=== PATIENT | female | born 1960 | race American Indian/Alaskan Native ===

== ENCOUNTER 2017-03-11 22:06 | Emergency (ER) | payer OTHER ==
[2017-03-11 22:06] VITALS: BMI 37.4
[2017-03-11 22:13] VITALS: TEMP 97.8
--- NOTE | 2017-03-11 22:53 | ED PDOC ---
Syncope/Near Syncope/Dizziness Time Seen by Provider: 03/11/17 22:14 Chief Complaint (Nursing): Seizure Chief Complaint (Provider): syncope History Per: Patient Onset/Duration Of Symptoms: Sudden Onset (just prior to arrival) Activity At Onset Of Symptoms: Other (just walked out of a bathroom that had cleaning fume smell) Associated Symptoms Preceding Syncopal Episode: No Predromal Symptoms (Sudden Onset) Additional Complaint(s): Pt also reports that she may have had a seizure but isn't sure. No report of convulsive activity. However, she has h/o seizure and she has not taken her medications for a "few days" due to issues with the homeless [facility]. Denies focal weakness, blurry vision, slurred speech, confusion, or headache PMD Dr Rubio Noel Past Medical History Reviewed: Historical Data, Nursing Documentation, Vital Signs Vital Signs: Last Vital Signs Temp 97.8 F 03/11/17 22:07 Pulse 85 03/11/17 22:07 Resp 16 03/11/17 22:07 BP 137/61 03/11/17 22:07 Pulse Ox 97 03/11/17 22:07 - Medical History PMH: Anemia, Anxiety, Asthma, Back Problems, HTN, Migraine, Chronic Kidney Disease, Seizures (LAST WAS IN AUG PER PT) Denies: Hyperthyroidism (hyperparathyroidism ) - Surgical History Surgical History: - Family History Family History: States: Unknown Family Hx - Living Arrangements Living Arrangements: Other (Undomiciled) - Social History Current smoker - smoking cessation education provided: No Alcohol: None - Immunization History Hx Tetanus Toxoid Vaccination: Yes Hx Influenza Vaccination: Yes (05/2015) Hx Pneumococcal Vaccination: Yes (2012) - Home Medications Home Medications: Ambulatory Orders Medication Instructions Recorded Ferrous Sulfate [Iron Supplement] 325 mg PO TID 09/09/15 Folic Acid 1 mg PO TID 11/19/15 Meclizine [Meclizine*] 25 mg PO TID PRN #0 tab 10/11/16 Metoprolol Tartrate [Lopressor] 12.5 mg PO DAILY #30 tab 10/11/16 Levetiracetam [Keppra] 500 mg PO HS 01/12/17 Pantoprazole [Protonix EC Tab] 40 mg PO DAILY 01/12/17 Phenytoin, Extended [Dilantin] 200 mg PO DAILY 01/28/17 Acetaminophen [Tylenol 325mg tab] 650 mg PO Q6 PRN tab 02/27/17 Ketorolac [Toradol] 30 mg IVP STAT vial 02/27/17 Nitrofurantoin Macrocrystals 100 mg PO BID 5 Days 03/12/17 [Macrobid] - Allergies Allergies/Adverse Reactions: Allergies Allergy/AdvReac Type Severity Reaction Status Date / Time ciprofloxacin [From Cipro] Allergy ITCHING Verified 01/29/17 13:13 ciprofloxacin HCl Allergy ITCHING Verified 01/29/17 13:13 [From Cipro] heparin Allergy Verified 02/24/17 21:58 iodine Allergy SHORTNESS Verified 01/29/17 13:13 OF BREATH peanut Allergy SHORTNESS Verified 01/29/17 13:13 OF BREATH Penicillins Allergy RASH Verified 01/29/17 13:13 shellfish derived Allergy RASH Verified 01/29/17 13:13 baljit nuts Allergy SHORTNESS Uncoded 01/28/17 17:27 OF BREATH nuts Allergy SHORTNESS Uncoded 01/28/17 17:27 OF BREATH peanut butter Allergy SHORTNESS Uncoded 01/28/17 17:27 OF BREATH Review of Systems ROS Statement: Except As Marked, All Systems Reviewed And Found Negative (and as per HPI) Musculoskeletal: Positive for: Neck Pain Neurological: Positive for: Dizziness (chronic vertigo). Negative for: Weakness , Numbness, Confusion, Headache Physical Exam - Reviewed Nursing Documentation Reviewed: Yes Vital Signs Reviewed: Yes - Physical Exam Appears: Positive for: Non-toxic, No Acute Distress Head Exam: Positive for: ATRAUMATIC, NORMOCEPHALIC Skin: Positive for: Warm, Dry Eye Exam: Positive for: EOMI, PERRL ENT: Negative for: Pharyngeal Erythema, Tonsillar Exudate Neck: Positive for: Painless ROM, Supple Cardiovascular/Chest: Positive for: Regular Rate, Rhythm, Chest Non Tender. Negative for: Murmur Respiratory: Positive for: Normal Breath Sounds. Negative for: Wheezing Gastrointestinal/Abdominal: Positive for: Bowel Sounds, Soft. Negative for: Tenderness Back: Positive for: Normal Inspection. Negative for: Vertebral Tenderness Extremity: Positive for: Normal ROM. 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 Negative for: Motor/Sensory Deficits, Aphasia, Facial Droop - Laboratory Results Result Diagrams: 03/11/17 23:35 03/11/17 23:35 - ECG O2 Sat by Pulse Oximetry: 97 Medical Decision Making Medical Decision Making: Reviewed previous charts Pt had multiple visits to [facility] ER for similar issue in the last 2 months She had tilt table testing and cardiac workup negative. Neuro evaluation also unremarkable. Call placed to Dr Rodriguez Noel for collateral medical history and pt's plan of care. Disposition - Clinical Impression Clinical Impression: UTI (urinary tract infection), Seizure disorder - Disposition Disposition Time: 00:30 Condition: STABLE Prescriptions: Nitrofurantoin Macrocrystals [Macrobid] 100 mg PO BID 5 Days Patient Signed Over To: Delano Saavedra Handoff Comments: Pending ER workup, reassessment and final ER disposition
[2017-03-11 23:47] LABS: RBC URINE 3 /hpf (0-3); URINE BACTERIA FEW (<OCC); URINE BILIRUBIN NEGATIVE (NEGATIVE); URINE BLOOD NEGATIVE (NEGATIVE); URINE COLOR YELLOW (YELLOW); URINE GLUCOSE (UA) NEG (Normal); URINE KETONE NEGATIVE (NEGATIVE); URINE LEUKOCYTE ESTERASE MOD Leu/uL (Negative); URINE PROTEIN NEGATIVE (NEGATIVE); URINE UROBILINOGEN 0.2-1.0 mg/dL (0.2-1.0); WBC URINE 25 /hpf (0-5)
[2017-03-12 00:07] LABS: BASO # 0.1 K/uL (0.0-0.2); BASO % 0.9 % (0.0-2.0); EOS # 0.3 K/uL (0.0-0.7); HEMATOCRIT 38.5 % (34.0-47.0); LYMPH # 2.5 K/uL (1.0-4.3); LYMPH % 37.5 % (20.0-40.0); MEAN CELL VOLUME 87.9 fl (81.0-99.0); MEAN CORPUSCULAR HEMOGLOBIN 28.9 pg (27.0-31.0); MEAN CORPUSCULAR HGB CONC 32.9 g/dL (33.0-37.0); MEAN PLATELET VOLUME 10.2 fl (7.2-11.7); MONO # 0.7 K/uL (0.0-0.8); MONO % 10.3 % (0.0-10.0); NEUT # 3.2 K/uL (1.8-7.0); NEUT % 47.3 % (50.0-75.0); RED CELL DISTRIBUTION WIDTH 14.6 % (11.5-14.5); WHITE BLOOD COUNT 6.7 K/uL (4.8-10.8)
--- NOTE | 2017-03-12 00:45 | ED PDOC ---
- Laboratory Results Result Diagrams: 03/11/17 23:35 03/11/17 23:35 - ECG O2 Sat by Pulse Oximetry: 97 Medical Decision Making Medical Decision Makin Transfer of care from Dr. Joseph to provider pending lab work. 0256 Patient has had no seizure activity within the ED. Dilantin level - negative Patient admits to not been taking medicine for the past few days. Scribe Attestation: Documented by Susanna Gutierrez acting as a scribe for Delano Saavedra MD. Scribe Attestation: All medical record entries made by the Scribe were at my direction and personally dictated by me. I have reviewed the chart and agree that the record accurately reflects my personal performance of the history, physical exam, medical decision making, and the department course for this patient. I have also personally directed, reviewed, and agree with the discharge instructions and disposition. Disposition - Clinical Impression Clinical Impression: UTI (urinary tract infection), Seizure disorder - POA Present On Arrival: None - Disposition Referrals: [facility] [Outside] Disposition: Routine/Home Disposition Time: 02:55 Condition: STABLE Prescriptions: Nitrofurantoin Macrocrystals [Macrobid] 100 mg PO BID 5 Days Instructions: Urinary Tract Infection in Women (DC), Epilepsy (ED)
[2017-03-12 00:47] LABS: ALB/GLOB RATIO 1.3 (1.0-2.1); ALCOHOL SERUM < 10 mg/dl (0-10); ALKALINE PHOSPHATASE 135 U/L (38-126); ALT/SGPT 35 U/L (9-52); AST/SGOT 23 U/L (14-36); BILIRUBIN,TOTAL 0.2 mg/dl (0.2-1.3); BLOOD UREA NITROGEN 20 mg/dl (7-17); CALCIUM 11.6 mg/dL (8.4-10.2); CARBON DIOXIDE 24 mmol/L (22-30); CHLORIDE 107 mmol/L (98-107); GFR AFRICAN-AMERICAN > 60; GLUCOSE,RANDOM 99 mg/dL (65-105); MAGNESIUM 1.9 MG/DL (1.6-2.3); POTASSIUM 4.2 MMOL/L (3.6-5.0); SODIUM 140 mmol/l (132-148); TOTAL PROTEIN 7.3 G/DL (6.3-8.2)
[2017-03-12 01:15] LABS: PARTIAL THROMBOPLASTIN TIME 25.3 Seconds (25.6-37.1)
[2017-03-12 04:05] VITALS: BP 122/81; PULSE 69; RESP 18
[2017-03-12 04:06] VITALS: O2SAT 97
--- NOTE | 2017-03-12 13:47 | CARD ---
APPROVED REPORT EKG Measurement Heart [id number] WI 180P59 [id number] <Conclusion> Normal sinus rhythm Minimal voltage criteria for LVH, may be normal variant Possible Anteroseptal infarct, age undetermined Abnormal ECG
== END 2017-03-12 04:00 | disposition home or self-care (01) ==
LOC: H.ER 22:06
DX: N39.0 Urinary tract infection, site not specified (principal); G40.909 Epilepsy, unspecified, not intractable, without status epilepticus

== ENCOUNTER 2017-03-17 12:21 | Emergency (ER) | payer OTHER ==
[2017-03-17 12:21] VITALS: BMI 37.4
[2017-03-17 12:24] VITALS: TEMP 97.9; O2SAT 98
--- NOTE | 2017-03-17 13:42 | ED PDOC ---
Syncope/Near Syncope/Dizziness Time Seen by Provider: 03/17/17 12:34 Chief Complaint (Nursing): Syncope Chief Complaint (Provider): Syncope History Per: Patient History/Exam Limitations: no limitations Onset/Duration Of Symptoms: Mins Current Symptoms Are (Timing): Still Present Number Of Syncopal Episodes: 1 Seizure Or Post-ictal Symptoms: None Fall Associated With With Symptoms: No Severity: Mild Additional Complaint(s): Patient is a 57 year old female brought in by EMS complaining of syncopal event earlier today. Patient reports she has been feeling foggy since yesterday. Patient reports she had a syncopal episode in hindu, unknown duration. There was no seizure-like activity or post-ictal period. Patient has a history of asthma and also complains of shortness of breath. Denies head trauma, chest pain , palpitations, visual changes, paresthesia, weakness, or pain at this time. PMD: none Past Medical History Reviewed: Historical Data, Nursing Documentation, Vital Signs Vital Signs: Last Vital Signs Temp 97.9 F 03/17/17 12:23 Pulse 72 03/17/17 12:23 Resp 20 03/17/17 12:23 BP 108/72 03/17/17 12:23 Pulse Ox 98 03/17/17 12:23 - Medical History PMH: Anemia, Anxiety, Asthma, Back Problems, HTN, Kidney Stones, Migraine, Chronic Kidney Disease, Seizures (LAST WAS IN AUG PER PT) Denies: Hyperthyroidism (hyperparathyroidism ) - Surgical History Surgical History: - Family History Family History: States: No Known Family Hx - Immunization History Hx Tetanus Toxoid Vaccination: Yes Hx Influenza Vaccination: Yes (05/2015) Hx Pneumococcal Vaccination: Yes (2012) - Home Medications Home Medications: Ambulatory Orders Medication Instructions Recorded Ferrous Sulfate [Iron Supplement] 325 mg PO TID 09/09/15 Folic Acid 1 mg PO TID 11/19/15 Meclizine [Meclizine*] 25 mg PO TID PRN #0 tab 10/11/16 Metoprolol Tartrate [Lopressor] 12.5 mg PO DAILY #30 tab 10/11/16 Levetiracetam [Keppra] 500 mg PO HS 01/12/17 Pantoprazole [Protonix EC Tab] 40 mg PO DAILY 01/12/17 Phenytoin, Extended [Dilantin] 200 mg PO DAILY 01/28/17 Acetaminophen [Tylenol 325mg tab] 650 mg PO Q6 PRN tab 02/27/17 Levetiracetam [Keppra] 500 mg PO BID #28 tablet 03/17/17 Phenytoin, Extended [Dilantin 200 mg PO DAILY #14 cer 03/17/17 Kapseals] Sulfamethoxazole/Trimethoprim 1 tab PO BID #10 tab 03/17/17 [Bactrim DS 800 mg-160 mg] - Allergies Allergies/Adverse Reactions: Allergies Allergy/AdvReac Type Severity Reaction Status Date / Time ciprofloxacin [From Cipro] Allergy ITCHING Verified 03/17/17 12:35 ciprofloxacin HCl Allergy ITCHING Verified 03/17/17 12:35 [From Cipro] heparin Allergy RASH Verified 03/17/17 12:35 iodine Allergy SHORTNESS Verified 03/17/17 12:35 OF BREATH peanut Allergy SHORTNESS Verified 03/17/17 12:35 OF BREATH Penicillins Allergy RASH Verified 03/17/17 12:35 shellfish derived Allergy RASH Verified 03/17/17 12:35 baljit nuts Allergy SHORTNESS Uncoded 03/17/17 12:35 OF BREATH nuts Allergy SHORTNESS Uncoded 03/17/17 12:35 OF BREATH peanut butter Allergy SHORTNESS Uncoded 03/17/17 12:35 OF BREATH Review of Systems ROS Statement: Except As Marked, All Systems Reviewed And Found Negative Constitutional: Positive for: Other (Syncope) Eyes: Negative for: Vision Change Cardiovascular: Negative for: Chest Pain, Palpitations Neurological: Negative for: Weakness, Seizures Physical Exam - Reviewed Nursing Documentation Reviewed: Yes Vital Signs Reviewed: Yes - Physical Exam Appears: Positive for: Well, Non-toxic, No Acute Distress Head Exam: Positive for: ATRAUMATIC, NORMAL INSPECTION, NORMOCEPHALIC Skin: Positive for: Normal Color, Warm, DRY Eye Exam: Positive for: Normal appearance, EOMI, PERRL Neck: Positive for: Normal, Painless ROM Cardiovascular/Chest: Positive for: Regular Rate, Rhythm. Negative for: Gallop , Murmur Respiratory: Positive for: Normal Breath Sounds. Negative for: Accessory Muscle Use, Rhonchi, Respiratory Distress Extremity: Positive for: Normal ROM Neurologic/Psych: Positive for: Alert, Oriented (x3) - Laboratory Results Result Diagrams: 03/17/17 13:38 03/17/17 13:38 - ECG Interpretation Of ECG: NSR @ 71, no ST-T changes. O2 Sat by Pulse Oximetry: 98 (RA) Pulse Ox Interpretation: Normal - Physician Consult Information Time Consulting Physican Contacted: 16:45 Physician Contacted: Henrique Merino Outcome Of Conversation: Covering for Dr. Heri Noel, agrees with discharge home. Medical Decision Making Medical Decision Making: Time: 12:35 Impression: Syncopal Event Plan: CT Head EKG Carbamazepine CMP Dilantin stat Troponin stat UDip CBC D Dimer PTT/PT CXR Glucose Blood POC Stat UA [address] Chung, the neurologist compliance professional. Recommends administering 300mg Dilantin for the subtherapeutic level right now and then to continue as per the regular schedule. Also notes to increase Keppra to 500mg x2 a day. Old records reviewed, pt admitted to [facility] multiple times for syncope. Pt states workup for syncopal episodes negative, was told they were related to stress. States she is homeless now and is under a lot of stress and thinks this is the reason she passed out today. Pt without complaints, feels good. Scribe Attestation: Documented by Wilber Sierra acting as a scribe for Nilsa Chandler MD. MD Scribe Attestation: All medical record entries made by the Scribe were at my direction and personally dictated by me. I have reviewed the chart and agree that the record accurately reflects my personal performance of the history, physical exam, medical decision making, and the department course for this patient. I have also personally directed, reviewed, and agree with the discharge instructions and disposition. Disposition - Clinical Impression Clinical Impression: Syncope, UTI (urinary tract infection) - Patient ED Disposition Is Patient to be Admitted: No - Disposition Referrals: Andrés Chung MD [Staff Provider] - Shania Noel MD [Staff Provider] - Disposition: Routine/Home Disposition Time: 16:50 Condition: STABLE Prescriptions: Levetiracetam [Keppra] 500 mg PO BID #28 tablet Phenytoin, Extended [Dilantin Kapseals] 200 mg PO DAILY #14 cer Sulfamethoxazole/Trimethoprim [Bactrim DS 800 mg-160 mg] 1 tab PO BID #10 tab Instructions: Urinary Tract Infection in Women (ED), Syncope (ED)
[2017-03-17 13:47] LABS: RBC URINE 7 /hpf (0-3); URINE BACTERIA RARE (<OCC); URINE BILIRUBIN NEGATIVE (NEGATIVE); URINE BLOOD NEGATIVE (NEGATIVE); URINE COLOR YELLOW (YELLOW); URINE GLUCOSE (UA) NEG (Normal); URINE KETONE NEGATIVE (NEGATIVE); URINE LEUKOCYTE ESTERASE LARGE Leu/uL (Negative); URINE PROTEIN NEGATIVE (NEGATIVE); URINE UROBILINOGEN 0.2-1.0 mg/dL (0.2-1.0); WBC CLUMPS FEW /hpf; WBC URINE 48 /hpf (0-5)
[2017-03-17 13:48] LABS: BASO # 0.1 K/uL (0.0-0.2); BASO % 0.9 % (0.0-2.0); EOS # 0.3 K/uL (0.0-0.7); EOS % 4.8 % (0.0-4.0); HEMATOCRIT 38.9 % (34.0-47.0); LYMPH # 2.3 K/uL (1.0-4.3); LYMPH % 41.4 % (20.0-40.0); MEAN CELL VOLUME 88.7 fl (81.0-99.0); MEAN CORPUSCULAR HGB CONC 32.7 g/dL (33.0-37.0); MEAN PLATELET VOLUME 9.8 fl (7.2-11.7); MONO # 0.6 K/uL (0.0-0.8); MONO % 10.3 % (0.0-10.0); NEUT # 2.4 K/uL (1.8-7.0); NEUT % 42.6 % (50.0-75.0); NRBC % 0.1 % (0.0-0.0); RED CELL DISTRIBUTION WIDTH 14.5 % (11.5-14.5); WHITE BLOOD COUNT 5.5 K/uL (4.8-10.8)
--- NOTE | 2017-03-17 14:12 | CT ---
PROCEDURE: CT HEAD WITHOUT CONTRAST. HISTORY: Syncope COMPARISON: None available. TECHNIQUE: Axial computed tomography images were obtained through the head/brain without intravenous contrast. Radiation dose: Total exam DLP = 923.2 MGy-cm. This CT exam was performed using one or more of the following dose reduction techniques: Automated exposure control, adjustment of the mA and/or kV according to patient size, and/or use of iterative reconstruction technique. FINDINGS: HEMORRHAGE: No acute parenchymal, subarachnoid or extra-axial hemorrhage. BRAIN: No evidence of large acute infarct. Questionable minimal chronic periventricular white matter ischemic changes. No obvious parenchymal nor extra-axial mass or collection. . Minor age-appropriate volume loss. VENTRICLES: No evidence of obstructive hydrocephalus. CALVARIUM: No acute calvarial fractures. PARANASAL SINUSES: Unremarkable as visualized. No significant inflammatory changes. MASTOID AIR CELLS: Unremarkable as visualized. No inflammatory changes. OTHER FINDINGS: None. IMPRESSION: No acute intracranial hemorrhage. . . Questionable minimal chronic periventricular white matter ischemic changes.
[2017-03-17 14:25] LABS: PARTIAL THROMBOPLASTIN TIME 26.5 Seconds (25.6-37.1)
[2017-03-17 14:26] LABS: ALB/GLOB RATIO 1.2 (1.0-2.1); ALKALINE PHOSPHATASE 137 U/L (38-126); ALT/SGPT 37 U/L (9-52); AST/SGOT 23 U/L (14-36); BILIRUBIN,TOTAL 0.1 mg/dl (0.2-1.3); BLOOD UREA NITROGEN 12 mg/dl (7-17); CARBON DIOXIDE 23 mmol/L (22-30); CHLORIDE 107 mmol/L (98-107); GFR AFRICAN-AMERICAN > 60; GLUCOSE,RANDOM 91 mg/dL (65-105); POTASSIUM 4.3 MMOL/L (3.6-5.0); SODIUM 141 mmol/l (132-148); TOTAL PROTEIN 7.1 G/DL (6.3-8.2)
[2017-03-17 14:30] LABS: CARBAMAZEPINE < 3.0 ug/mL (4.0-12.0)
[2017-03-17] MEDS ORDERED: Tmp-Smz 800 mg-160 mg DS Tab PO STA (15:51)
[2017-03-17] MEDS ORDERED: Fluconazole 150 MG TAB PO STA (15:51)
[2017-03-17] MEDS ORDERED: Tmp-Smz 800 mg-160 mg DS Tab ONE (15:53)
--- NOTE | 2017-03-17 15:55 | RAD ---
HISTORY: Syncope COMPARISON: No prior. FINDINGS: LUNGS: No active pulmonary disease. PLEURA: No significant pleural effusion identified, no pneumothorax apparent. CARDIOVASCULAR: Cardiomegaly. OSSEOUS STRUCTURES: Minor multilevel degenerative spondylosis of the thoracic spine with mild dextroscoliosis centered at the thoracolumbar junction. VISUALIZED UPPER ABDOMEN: Normal. OTHER FINDINGS: None. IMPRESSION: Cardiomegaly. No acute consolidation.
[2017-03-17 17:25] VITALS: BP 138/75; PULSE 69; RESP 18
--- NOTE | 2017-03-18 16:45 | CARD ---
APPROVED REPORT EKG Measurement Heart [id number] RI 208P63 [id number] <Conclusion> Normal sinus rhythm Septal infarct, age undetermined Abnormal ECG
== END 2017-03-17 17:40 | disposition home or self-care (01) ==
LOC: H.ER 12:21
DX: R55 Syncope and collapse (principal); N39.0 Urinary tract infection, site not specified

== ENCOUNTER 2017-03-29 06:47 | Emergency (ER) | payer OTHER ==
[2017-03-29 06:47] VITALS: BMI 37.4
--- NOTE | 2017-03-29 07:26 | ED PDOC ---
HPI: SOB/CHF/COPD Time Seen by Provider: 03/29/17 07:09 Chief Complaint (Nursing): Shortness Of Breath History Per: Patient History/Exam Limitations: no limitations Onset/Duration Of Symptoms: Gradual (THIS AM) Current Symptoms Are (Timing): Gone Now Current Respiratory Medications: See Home Med List Severity: Mild Associated Symptoms: denies: Fever, Chills, Sweating, Chest Pain, Bloody Cough, Productive Cough, Heart Racing, Leg/Calf Pain, Ankle/Leg Swelling, Dizziness, Light-headedness, Anxiety, Tingling In Hands Or Face, Musle Spasms In Hands Or Feet Similar Symptoms Previously: yes Additional History Per: Patient Additional Complaint(s): Pt complains of suddenly becoming SOB this morning after doing morning chores. Denies chest pain. Pt complained of sudden almost blacking out, near syncope this am. pt has been here five times in the last month for similar contents negative workup no follow up in the clinic. pt states she states it may be due to her anxiety Past Medical History Reviewed: Historical Data, Nursing Documentation, Vital Signs Vital Signs: Last Vital Signs Temp 98.9 F 03/29/17 07:02 Pulse 78 03/29/17 10:00 Resp 14 03/29/17 10:00 BP 132/75 03/29/17 10:00 Pulse Ox 98 03/29/17 10:00 - Medical History PMH: Anemia, Anxiety, Asthma, Back Problems, HTN, Kidney Stones, Migraine, Chronic Kidney Disease, Seizures (LAST WAS IN AUG PER PT) Denies: Hyperthyroidism (hyperparathyroidism ) - Surgical History Surgical History: - Family History Family History: States: Unknown Family Hx - Living Arrangements Living Arrangements: With Friends/Others (correction) - Social History Current smoker - smoking cessation education provided: No - Immunization History Hx Tetanus Toxoid Vaccination: Yes Hx Influenza Vaccination: Yes (05/2015) Hx Pneumococcal Vaccination: Yes (2012) - Home Medications Home Medications: Ambulatory Orders Medication Instructions Recorded Ferrous Sulfate [Iron Supplement] 325 mg PO TID 09/09/15 Folic Acid 1 mg PO TID 11/19/15 Meclizine [Meclizine*] 25 mg PO TID PRN #0 tab 10/11/16 Metoprolol Tartrate [Lopressor] 12.5 mg PO DAILY #30 tab 10/11/16 Levetiracetam [Keppra] 500 mg PO HS 01/12/17 Pantoprazole [Protonix EC Tab] 40 mg PO DAILY 01/12/17 Phenytoin, Extended [Dilantin] 200 mg PO DAILY 01/28/17 Acetaminophen [Tylenol 325mg tab] 650 mg PO Q6 PRN tab 02/27/17 Levetiracetam [Keppra] 500 mg PO BID #28 tablet 03/17/17 Phenytoin, Extended [Dilantin 200 mg PO DAILY #14 cer 03/17/17 Kapseals] Sulfamethoxazole/Trimethoprim 1 tab PO BID #10 tab 03/17/17 [Bactrim DS 800 mg-160 mg] Nitrofurantoin Macrocrystals 1 cap PO BID #14 cap 03/21/17 [Macrobid] - Allergies Allergies/Adverse Reactions: Allergies Allergy/AdvReac Type Severity Reaction Status Date / Time ciprofloxacin [From Cipro] Allergy ITCHING Verified 03/29/17 07:01 ciprofloxacin HCl Allergy ITCHING Verified 03/29/17 07:01 [From Cipro] heparin Allergy RASH Verified 03/29/17 07:01 iodine Allergy SHORTNESS Verified 03/29/17 07:01 OF BREATH peanut Allergy SHORTNESS Verified 03/29/17 07:01 OF BREATH Penicillins Allergy RASH Verified 03/29/17 07:01 shellfish derived Allergy RASH Verified 03/29/17 07:01 baljit nuts Allergy SHORTNESS Uncoded 03/29/17 07:01 OF BREATH nuts Allergy SHORTNESS Uncoded 03/29/17 07:01 OF BREATH peanut butter Allergy SHORTNESS Uncoded 03/29/17 07:01 OF BREATH Review of Systems ROS Statement: Except As Marked, All Systems Reviewed And Found Negative Constitutional: Negative for: Fever, Chills Cardiovascular: Positive for: Light Headedness. Negative for: Chest Pain, Palpitations, Edema Respiratory: Positive for: Shortness of Breath. Negative for: Cough, SOB with Exertion Gastrointestinal: Negative for: Nausea, Vomiting, Abdominal Pain, Diarrhea Skin: Negative for: Rash Neurological: Negative for: Weakness, Numbness, Altered Mental Status Physical Exam - Reviewed Nursing Documentation Reviewed: Yes Vital Signs Reviewed: Yes - Physical Exam Appears: Positive for: Well, No Acute Distress Head Exam: Positive for: ATRAUMATIC, NORMAL INSPECTION, NORMOCEPHALIC Eye Exam: Positive for: Normal appearance, EOMI, PERRL. Negative for: Nystagmus , Periorbital swelling, Periorbital tenderness ENT: Positive for: Pharynx Is (clear,mmm) Neck: Positive for: Normal, Painless ROM, Supple Cardiovascular/Chest: Positive for: Regular Rate, Rhythm, Chest Non Tender. Negative for: Edema, Gallop, JVD, Murmur, Bradycardia, Tachycardia, Ectopy, Friction Rub, Irregularly Irregular Respiratory: Positive for: Normal Breath Sounds. Negative for: Decreased Breath Sounds, Accessory Muscle Use, Crackles, Rales, Rhonchi, Stridor, Wheezing , Respiratory Distress, Plerual Rub Pulses-Radial (L): 2+ Pulses-Radial (R): 2+ Gastrointestinal/Abdominal: Positive for: Normal Exam, Bowel Sounds, Soft. Negative for: Tenderness Back: Positive for: Normal Inspection. Negative for: L CVA Tenderness, R CVA Tenderness Extremity: Positive for: Normal ROM. 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 Negative for: Motor/Sensory Deficits, Aphasia, Facial Droop - Laboratory Results Result Diagrams: 03/29/17 07:38 03/29/17 07:38 - ECG ECG: Positive for: Interpreted By Ne ECG Rhythm: Positive for: Normal QRS, Normal ST Segment, Sinus Rhythm. Negative for: ST/T Changes Interpretation Of Abn EKG: rate of 88 no change when compared to 03/21/2017 O2 Sat by Pulse Oximetry: 99 Pulse Ox Interpretation: Normal - Radiology X-Ray: Interpreted by Ne X-Ray Interpretation: No Acute Disease - Progress ED Course And Treament: negative workup. vq scan nml. multiple [place] [facility] in the past for similar Re-evaluation Time: 15:04 Condition: Improved Disposition - Clinical Impression Clinical Impression: Dyspnea - Patient ED Disposition Is Patient to be Admitted: No Counseled Patient/Family Regarding: Studies Performed, Diagnosis, Need For Followup - Disposition Referrals: [facility] [Outside] (2 to 3 days) Disposition: Routine/Home Disposition Time: 15:05 Condition: GOOD Instructions: Dyspnea (ED)
[2017-03-29 07:47] LABS: BASO # 0.1 K/uL (0.0-0.2); BASO % 1.2 % (0.0-2.0); EOS # 0.2 K/uL (0.0-0.7); LYMPH # 2.2 K/uL (1.0-4.3); LYMPH % 37.5 % (20.0-40.0); MEAN CELL VOLUME 88.4 fl (81.0-99.0); MEAN CORPUSCULAR HEMOGLOBIN 29.7 pg (27.0-31.0); MEAN CORPUSCULAR HGB CONC 33.6 g/dL (33.0-37.0); MEAN PLATELET VOLUME 10.4 fl (7.2-11.7); MONO # 0.4 K/uL (0.0-0.8); MONO % 7.8 % (0.0-10.0); NEUT # 2.9 K/uL (1.8-7.0); NEUT % 50.5 % (50.0-75.0); NRBC % 0.2 % (0.0-0.0); RBC 4.4 Mil/uL (3.80-5.20); RED CELL DISTRIBUTION WIDTH 14.5 % (11.5-14.5); WHITE BLOOD COUNT 5.7 K/uL (4.8-10.8)
[2017-03-29 08:50] LABS: PROTHROMBIN TIME 11.5 Seconds (9.8-13.1)
[2017-03-29 08:51] LABS: PARTIAL THROMBOPLASTIN TIME 25.6 Seconds (25.6-37.1)
--- NOTE | 2017-03-29 08:56 | RAD ---
PROCEDURE: CHEST RADIOGRAPH, 1 VIEW HISTORY: Shortness of breath COMPARISON: 03/17/2017 FINDINGS: LUNGS: Mild venous congestion. Right hilar prominence. Patchy increased markings at the left lung base with question trace left pleural effusion. Biapical pleural thickening. PLEURA: As above. CARDIOVASCULAR: Normal. OSSEOUS STRUCTURES: No significant abnormalities. VISUALIZED UPPER ABDOMEN: Normal. OTHER FINDINGS: None. IMPRESSION: Mild venous congestion. Right hilar prominence. Patchy increased markings at the left lung base with question trace left pleural effusion. Biapical pleural thickening.
[2017-03-29 08:59] LABS: ALB/GLOB RATIO 1.2 (1.0-2.1); ALBUMIN 3.8 g/dL (3.5-5.0); ALT/SGPT 29 U/L (9-52); AST/SGOT 20 U/L (14-36); BLOOD UREA NITROGEN 12 mg/dl (7-17); GFR AFRICAN-AMERICAN > 60; GFR NON-AFRICAN AMERICAN > 60; MAGNESIUM 1.9 MG/DL (1.6-2.3)
[2017-03-29 09:11] LABS: B-TYPE NATRIURETIC PEPTIDE 25.3 pg/ml (0-900)
[2017-03-29] MEDS ORDERED: DiphenhydrAMINE 50 mg/ml Inj IVP STA (09:42)
[2017-03-29] MEDS ORDERED: methylPREDNISolone 80 MG in Sodium Chloride 0.9% 50 ML IVPB ONE (10:00)
[2017-03-29] MEDS ORDERED: DiphenhydrAMINE 50 mg/ml Inj ONE (10:30)
[2017-03-29 10:35] VITALS: BP 132/75; RESP 14
--- NOTE | 2017-03-29 14:41 | NM ---
COMPARISON: March 29, 2017. TECHNIQUE: 35.1 mCi technetium 99-m DTPA aerosol. 6.4 mCI technetium 99-m MAA administered intravenously. FINDINGS: VENTILATION COMPONENT: Heterogeneous ventilation Retention of radionuclide in the central tracheobronchial tree. Ingestion of radionuclide in the stomach. PERFUSION COMPONENT: Heterogeneous distribution of radionuclide. No geographic, segmental, lobar abnormalities apparent on the present examination. IMPRESSION: Low probability ventilation perfusion scan for pulmonary embolism.
[2017-03-29 15:53] VITALS: PULSE 74; TEMP 98; O2SAT 98
--- NOTE | 2017-03-29 17:14 | CARD ---
APPROVED REPORT EKG Measurement Heart [id number] CT 180P58 [id number] <Conclusion> Normal sinus rhythm Left axis deviation Minimal voltage criteria for LVH, may be normal variant Anteroseptal infarct, age undetermined Abnormal ECG
== END 2017-03-29 15:53 | disposition home or self-care (01) ==
LOC: H.ER 06:47
DX: R06.00 Dyspnea, unspecified (principal); F41.9 Anxiety disorder, unspecified; I12.9 Hypertensive chronic kidney disease with stage 1 through stage 4 chronic kidney disease, or unspecified chronic kidney disease; J44.9 Chronic obstructive pulmonary disease, unspecified; Z88.0 Allergy status to penicillin; N18.9 Chronic kidney disease, unspecified

== ENCOUNTER 2017-04-13 11:21 | Emergency (ER) | payer OTHER ==
[2017-04-13 11:21] VITALS: BMI 37.4
--- NOTE | 2017-04-13 12:01 | ED PDOC ---
HPI: Eye Injury/Pain Time Seen by Provider: 04/13/17 11:34 Chief Complaint (Nursing): Eye Problem Chief Complaint (Provider): Eye Problem History Per: Patient History/Exam Limitations: no limitations Onset/Duration Of Symptoms: Days (2) Additional Complaint(s): Patient is a 57 year old female presenting to the ED for an itchy left eye that has been ongoing for two days. Denies eye pain and visual changes. Of note, patient reports that she has had similar symptoms in the past. Patient has no other complaints at this time. PCP: none provided. Past Medical History Reviewed: Historical Data, Nursing Documentation, Vital Signs Vital Signs: Last Vital Signs Temp 97 F L 04/13/17 11:28 Pulse 75 04/13/17 11:28 Resp 18 04/13/17 11:28 BP 101/69 04/13/17 11:28 Pulse Ox 99 04/13/17 11:28 - Medical History PMH: Anemia, Anxiety, Asthma, Back Problems, HTN, Kidney Stones, Migraine, Chronic Kidney Disease, Seizures (LAST WAS IN AUG PER PT) Comment Only: Hyperthyroidism (hyperparathyroidism ) - Surgical History Surgical History: - Family History Family History: States: Unknown Family Hx - Immunization History Hx Tetanus Toxoid Vaccination: Yes Hx Influenza Vaccination: Yes (05/2015) Hx Pneumococcal Vaccination: Yes (2012) - Home Medications Home Medications: Ambulatory Orders Medication Instructions Recorded Ferrous Sulfate [Iron Supplement] 325 mg PO TID 09/09/15 Folic Acid 1 mg PO TID 11/19/15 Meclizine [Meclizine*] 25 mg PO TID PRN #0 tab 10/11/16 Metoprolol Tartrate [Lopressor] 12.5 mg PO DAILY #30 tab 10/11/16 Levetiracetam [Keppra] 500 mg PO HS 01/12/17 Pantoprazole [Protonix EC Tab] 40 mg PO DAILY 01/12/17 Phenytoin, Extended [Dilantin] 200 mg PO DAILY 01/28/17 Acetaminophen [Tylenol 325mg tab] 650 mg PO Q6 PRN tab 02/27/17 Levetiracetam [Keppra] 500 mg PO BID #28 tablet 03/17/17 Phenytoin, Extended [Dilantin 200 mg PO DAILY #14 cer 03/17/17 Kapseals] Sulfamethoxazole/Trimethoprim 1 tab PO BID #10 tab 03/17/17 [Bactrim DS 800 mg-160 mg] Nitrofurantoin Macrocrystals 1 cap PO BID #14 cap 03/21/17 [Macrobid] Olopatadine HCl [Pataday] 1 drop OS DAILY PRN #1 bottle 04/13/17 - Allergies Allergies/Adverse Reactions: Allergies Allergy/AdvReac Type Severity Reaction Status Date / Time ciprofloxacin [From Cipro] Allergy ITCHING Verified 04/13/17 11:27 ciprofloxacin HCl Allergy ITCHING Verified 04/13/17 11:27 [From Cipro] heparin Allergy RASH Verified 04/13/17 11:27 iodine Allergy SHORTNESS Verified 04/13/17 11:27 OF BREATH peanut Allergy SHORTNESS Verified 04/13/17 11:27 OF BREATH Penicillins Allergy RASH Verified 04/13/17 11:27 shellfish derived Allergy RASH Verified 04/13/17 11:27 baljit nuts Allergy SHORTNESS Uncoded 04/13/17 11:27 OF BREATH nuts Allergy SHORTNESS Uncoded 04/13/17 11:27 OF BREATH peanut butter Allergy SHORTNESS Uncoded 04/13/17 11:27 OF BREATH Review of Systems ROS Statement: Except As Marked, All Systems Reviewed And Found Negative Eyes: Positive for: Other (Itchy, left eye). Negative for: Pain, Vision Change Physical Exam - Reviewed Nursing Documentation Reviewed: Yes Vital Signs Reviewed: Yes - Physical Exam Appears: Positive for: Well, Non-toxic, No Acute Distress Head Exam: Positive for: ATRAUMATIC, NORMAL INSPECTION, NORMOCEPHALIC Skin: Positive for: Normal Color, Warm, Dry Eye Exam: Positive for: EOMI, PERRL, Other (Minimal edema in medial lower left eyelid, no masses or lesions, no erythema). Negative for: Nystagmus, Periorbital swelling, Periorbital tenderness, Conjunctival injection, Scleral icterus Neck: Positive for: Normal, Supple Respiratory: Negative for: Respiratory Distress Neurologic/Psych: Positive for: Alert, Oriented - ECG O2 Sat by Pulse Oximetry: 99 (RA) Pulse Ox Interpretation: Normal Medical Decision Making Medical Decision Making: Initial plan: * Physical examination * Disposition Scribe Attestation: Documented by Nereyda Ponce training under Paige King, acting as a scribe for Nilsa Chandler MD. Provider Attestation: All medical record entries made by the Scribe were at my direction and personally dictated by me. I have reviewed the chart and agree that the record accurately reflects my personal performance of the history, physical exam, medical decision making, and the department course for this patient. I have also personally directed, reviewed, and agree with the discharge instructions and disposition. Disposition - Clinical Impression Clinical Impression: Allergic conjunctivitis - Patient ED Disposition Is Patient to be Admitted: No Counseled Patient/Family Regarding: Studies Performed, Diagnosis, Need For Followup, Rx Given - Disposition Referrals: Adeel Noel MD [Medical Doctor] - Disposition: Routine/Home Disposition Time: 12:05 Condition: STABLE Prescriptions: Olopatadine HCl [Pataday] 1 drop OS DAILY PRN #1 bottle PRN Reason: Allergy Symptoms Instructions: Allergies (ED)
[2017-04-13 12:55] VITALS: BP 101/69; PULSE 75; RESP 18; TEMP 97; O2SAT 99
== END 2017-04-13 12:00 | disposition home or self-care (01) ==
LOC: H.ER 11:21
DX: H10.45 Other chronic allergic conjunctivitis (principal)

== ENCOUNTER 2017-05-09 07:26 | Emergency (ER) | payer OTHER ==
[2017-05-09 07:26] VITALS: BMI 35.2
[2017-05-09 07:32] VITALS: BP 112/71; PULSE 82; RESP 18; TEMP 97.5; O2SAT 98
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
[2017-05-09] MEDS ORDERED: Lidocaine 5% Patch TD SCH (09:00)
== END 2017-05-09 12:19 | disposition home or self-care (01) ==
LOC: H.ER 07:26
DX: M54.9 Dorsalgia, unspecified (principal)

== ENCOUNTER 2017-06-16 12:33 | Emergency (ER) | payer OTHER ==
[2017-06-16 13:08] VITALS: BMI 34.4
[2017-06-16 13:09] VITALS: BP 142/68; PULSE 81; RESP 18; TEMP 97.6; O2SAT 100
[2017-06-16] MEDS ORDERED: Lidocaine 5% Patch TD STA (13:34)
--- NOTE | 2017-06-16 14:06 | ED PDOC ---
Upper Extremity Pain/Injury Time Seen by Provider: 06/16/17 13:14 Chief Complaint (Nursing): Upper Extremity Problem/Injury Chief Complaint (Provider): Right shoulder pain History Per: Patient History/Exam Limitations: no limitations Onset/Duration Of Symptoms: Days (x 3) Current Symptoms Are (Timing): Still Present Additional Complaint(s): Nafisa Drew is a 57 y/o female who presents to the ED complaining of atraumatic right shoulder pain for the past 3 days, but worsened today. Now patient also with right neck pain. Pain radiates down the right arm and up into the neck. Patient is requesting a Lidoderm patch, which has relieved her pain in the past. Denies trauma, fever, shortness of breath, and weakness. PMD: Dr. Betty Noel Past Medical History Reviewed: Historical Data, Nursing Documentation, Vital Signs Vital Signs: Last Vital Signs Temp 97.6 F 06/16/17 13:08 Pulse 81 06/16/17 13:08 Resp 18 06/16/17 13:08 BP 142/68 06/16/17 13:08 Pulse Ox 100 06/16/17 13:08 - Medical History PMH: Anemia, Anxiety, Asthma, Back Problems, HTN, Kidney Stones, Migraine, Chronic Kidney Disease, Seizures (LAST WAS IN AUG PER PT) Denies: Hyperthyroidism (hyperparathyroidism ) - Surgical History Surgical History: - Family History Family History: States: Unknown Family Hx - Immunization History Hx Tetanus Toxoid Vaccination: Yes Hx Influenza Vaccination: Yes (05/2015) Hx Pneumococcal Vaccination: Yes (2012) - Home Medications Home Medications: Ambulatory Orders Medication Instructions Recorded Ferrous Sulfate [Iron Supplement] 325 mg PO TID 09/09/15 Folic Acid 1 mg PO TID 11/19/15 Meclizine [Meclizine*] 25 mg PO TID PRN #0 tab 10/11/16 Metoprolol Tartrate [Lopressor] 12.5 mg PO DAILY #30 tab 10/11/16 Levetiracetam [Keppra] 500 mg PO HS 01/12/17 Pantoprazole [Protonix EC Tab] 40 mg PO DAILY 01/12/17 Phenytoin, Extended [Dilantin] 200 mg PO DAILY 01/28/17 Acetaminophen [Tylenol 325mg tab] 650 mg PO Q6 PRN tab 02/27/17 Levetiracetam [Keppra] 500 mg PO BID #28 tablet 03/17/17 Phenytoin, Extended [Dilantin 200 mg PO DAILY #14 cer 03/17/17 Kapseals] Sulfamethoxazole/Trimethoprim 1 tab PO BID #10 tab 03/17/17 [Bactrim DS 800 mg-160 mg] Nitrofurantoin Macrocrystals 1 cap PO BID #14 cap 03/21/17 [Macrobid] Olopatadine HCl [Pataday] 1 drop OS DAILY PRN #1 bottle 04/13/17 Ibuprofen [Motrin] 600 mg PO Q8 PRN #15 tab 04/20/17 Cyclobenzaprine [Cyclobenzaprine 10 mg PO Q8 PRN #9 tab 05/09/17 HCl] Naproxen [Naprosyn] 500 mg PO BID PRN #14 tablet 05/09/17 Meloxicam [Mobic] 15 mg PO DAILY PRN #15 tab 06/16/17 - Allergies Allergies/Adverse Reactions: Allergies Allergy/AdvReac Type Severity Reaction Status Date / Time ciprofloxacin [From Cipro] Allergy ITCHING Verified 04/13/17 11:27 ciprofloxacin HCl Allergy ITCHING Verified 04/13/17 11:27 [From Cipro] heparin Allergy RASH Verified 04/13/17 11:27 iodine Allergy SHORTNESS Verified 04/13/17 11:27 OF BREATH peanut Allergy SHORTNESS Verified 04/13/17 11:27 OF BREATH Penicillins Allergy RASH Verified 04/13/17 11:27 shellfish derived Allergy RASH Verified 04/13/17 11:27 baljit nuts Allergy SHORTNESS Uncoded 04/13/17 11:27 OF BREATH nuts Allergy SHORTNESS Uncoded 04/13/17 11:27 OF BREATH peanut butter Allergy SHORTNESS Uncoded 04/13/17 11:27 OF BREATH Review of Systems ROS Statement: Except As Marked, All Systems Reviewed And Found Negative Constitutional: Negative for: Fever, Other (Trauma) Respiratory: Negative for: Shortness of Breath Neurological: Negative for: Weakness Physical Exam - Reviewed Nursing Documentation Reviewed: Yes Vital Signs Reviewed: Yes - Physical Exam Appears: Positive for: Non-toxic, No Acute Distress Head Exam: Positive for: ATRAUMATIC, NORMAL INSPECTION, NORMOCEPHALIC Skin: Positive for: Normal Color, Warm, Dry Eye Exam: Positive for: EOMI, Normal appearance, PERRL Neck: Positive for: Normal, Painless ROM Respiratory: Negative for: Respiratory Distress Pulses-Radial (L): 2+ Pulses-Radial (R): 2+ Back: Positive for: Other (Right-sided paracervical muscle tenderness). 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 Negative for: Deformity Neurologic/Psych: Positive for: Alert, Oriented. Negative for: Motor/Sensory Deficits - ECG O2 Sat by Pulse Oximetry: 100 (RA) Pulse Ox Interpretation: Normal - Progress ED Course And Treament: C-spine x-ray: no fx Shoulder x-ray: calcific tendinitis; no fx or dislocation Finger x-ray: no fx Medical Decision Making Medical Decision Making: Time: 13:34 Initial Plan: --Flexeril 10 mg PO --Lidoderm 5% patch --Toradol 30 mg IM --X-Ray C-Spine --X-Ray Right Shoulder --Pending reevaluation Patient also admits she jammed the right 3rd digit. Time: 14:32 --Ordered X-Ray Right 3rd Digit Time: 15:00 --Discussed imaging results in detail with patient Scribe Attestation: Documented by Trinidad Soto, acting as a scribe for Ellis Bosch PA-C Provider Scribe Attestation: All medical record entries made by the Scribe were at my direction and personally dictated by me. I have reviewed the chart and agree that the record accurately reflects my personal performance of the history, physical exam, medical decision making, and the department course for this patient. I have also personally directed, reviewed, and agree with the discharge instructions and disposition. Disposition - Clinical Impression Clinical Impression: Calcific tendonitis - Patient ED Disposition Is Patient to be Admitted: No - Disposition Referrals: [facility] [Outside] Jose Guevara MD [Staff Provider] - Disposition: Routine/Home Disposition Time: 15:08 Condition: STABLE Prescriptions: Meloxicam [Mobic] 15 mg PO DAILY PRN #15 tab PRN Reason: pain Instructions: Calcific Tendinitis (ED) Forms: [employer] (East [place]orese) Print Language: [id number]
[2017-06-16] MEDS ORDERED: Lidocaine 5% Patch TD ONE (14:27)
--- NOTE | 2017-06-16 16:01 | RAD ---
PROCEDURE: Cervical Spine Radiographs. HISTORY: Pain. COMPARISON: None. FINDINGS: BONES: Alignment maintained. No fracture. Dens Intact. DISC SPACES: Normal. SOFT TISSUES: Normal. No prevertebral soft tissue swelling. OTHER FINDINGS: None. IMPRESSION: Normal cervical spine radiographs
--- NOTE | 2017-06-16 16:01 | RAD ---
PROCEDURE: Radiographs of the Right Shoulder HISTORY: pain COMPARISON: No prior. FINDINGS: BONES: Normal. No fracture. JOINTS: Normal. Glenohumeral and acromioclavicular joints preserved. No osteoarthritis. SOFT TISSUES: Normal. OTHER FINDINGS: None. IMPRESSION: Normal radiographs of the right shoulder.
--- NOTE | 2017-06-16 16:02 | RAD ---
PROCEDURE: Right Hand Radiographs. HISTORY: trauma COMPARISON: None. FINDINGS: BONES: Normal. No fracture. JOINTS: Normal. No osteoarthritic changes. SOFT TISSUES: Normal. OTHER FINDINGS: None. IMPRESSION: Normal right hand radiographs.
== END 2017-06-16 15:24 | disposition home or self-care (01) ==
LOC: H.ER 12:33
DX: M75.31 Calcific tendinitis of right shoulder (principal)
CPT/HCPCS: 72040; 73030; 73140; 96372; 99283; J1885

== ENCOUNTER 2017-06-23 22:09 | Emergency (ER) | payer OTHER ==
[2017-06-23 22:09] VITALS: BMI 34.4
[2017-06-23 22:16] VITALS: BP 138/99; RESP 16; TEMP 98; O2SAT 100
[2017-06-23] MEDS ORDERED: Sodium Chloride 0.9% 1,000 ML IV STA (22:25)
[2017-06-23] MEDS ORDERED: levETIRAcetam 500 MG in Sodium Chloride 0.9% 100 ML IVPB ONE (22:26)
[2017-06-23 22:47] LABS: BASO # 0.1 K/uL (0.0-0.2); BASO % 1.2 % (0.0-2.0); EOS # 0.2 K/uL (0.0-0.7); EOS % 2.5 % (0.0-4.0); HEMATOCRIT 40.8 % (34.0-47.0); LYMPH # 3.1 K/uL (1.0-4.3); LYMPH % 37.5 % (20.0-40.0); MEAN CELL VOLUME 87.6 fl (81.0-99.0); MEAN CORPUSCULAR HEMOGLOBIN 28.6 pg (27.0-31.0); MEAN CORPUSCULAR HGB CONC 32.6 g/dL (33.0-37.0); MONO # 0.9 K/uL (0.0-0.8); MONO % 10.9 % (0.0-10.0); NEUT # 3.9 K/uL (1.8-7.0); NEUT % 47.9 % (50.0-75.0); NRBC % 0.1 % (0.0-0.0); RED CELL DISTRIBUTION WIDTH 13.2 % (11.5-14.5); WHITE BLOOD COUNT 8.2 K/uL (4.8-10.8)
[2017-06-23 22:53] LABS: ALB/GLOB RATIO 1.1 (1.0-2.1); ALKALINE PHOSPHATASE 122 U/L (38-126); ALT/SGPT 29 U/L (9-52); AST/SGOT 31 U/L (14-36); BILIRUBIN,TOTAL 0.6 mg/dl (0.2-1.3); BLOOD UREA NITROGEN 17 mg/dl (7-17); CALCIUM 11.6 mg/dL (8.4-10.2); CARBON DIOXIDE 22 mmol/L (22-30); CHLORIDE 105 mmol/L (98-107); GFR AFRICAN-AMERICAN > 60; GLUCOSE,RANDOM 115 mg/dL (65-105); SODIUM 137 mmol/l (132-148); TOTAL PROTEIN 7.5 G/DL (6.3-8.2)
[2017-06-23 23:06] LABS: POTASSIUM 4.8 MMOL/L (3.6-5.0)
--- NOTE | 2017-06-23 23:22 | ED PDOC ---
HPI: Seizure Time Seen by Provider: 06/23/17 22:13 Chief Complaint (Nursing): Syncope Chief Complaint (Provider): Seizure History Per: Patient History/Exam Limitations: no limitations Recent Seizure Activity Began: Mins Ago: (x45 mins ago) Number Of Seizures: Multiple (one x45 minutes ago and 1 in triage) Length Of Seizures (Duration): Seconds (1st lasted <5 seconds) Precipitating Factor(s): None Additional Complaint(s): 57 year old female presents to ED with complaints of a seizure and has a past medical history of seizures and hypoglycemia. Patient notes that she has been noncompliant with Keppra and Dilantin prescriptions for more than 1 month. 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 Notes having another seizure in triage. Describes the seizures as her "whole body shaking". Notes being dizzy x few days. (-) fall or head injury. Status post seizure, patient denies all complaints. Neuro: Dr. Chin Chung Past Medical History Reviewed: Historical Data, Nursing Documentation, Vital Signs Vital Signs: Last Vital Signs Temp 98.0 F 06/23/17 22:14 Pulse 80 06/24/17 01:50 Resp 16 06/23/17 22:14 BP 138/99 H 06/23/17 22:14 Pulse Ox 100 06/24/17 01:50 - Medical History PMH: Anemia, Anxiety, Asthma, Back Problems, HTN, Kidney Stones, Migraine, Chronic Kidney Disease, Seizures (LAST WAS IN AUG PER PT) Denies: Hyperthyroidism (hyperparathyroidism ) - Surgical History Surgical History: Denies: No Surg Hx - Family History Family History: States: Unknown Family Hx - Social History Drugs: Denies - Immunization History Hx Tetanus Toxoid Vaccination: Yes Hx Influenza Vaccination: Yes (05/2015) Hx Pneumococcal Vaccination: Yes (2012) - Home Medications Home Medications: Ambulatory Orders Medication Instructions Recorded Ferrous Sulfate [Iron Supplement] 325 mg PO TID 09/09/15 Folic Acid 1 mg PO TID 11/19/15 Meclizine [Meclizine*] 25 mg PO TID PRN #0 tab 10/11/16 Metoprolol Tartrate [Lopressor] 12.5 mg PO DAILY #30 tab 10/11/16 Levetiracetam [Keppra] 500 mg PO HS 01/12/17 Pantoprazole [Protonix EC Tab] 40 mg PO DAILY 01/12/17 Phenytoin, Extended [Dilantin] 200 mg PO DAILY 01/28/17 Acetaminophen [Tylenol 325mg tab] 650 mg PO Q6 PRN tab 02/27/17 Levetiracetam [Keppra] 500 mg PO BID #28 tablet 03/17/17 Phenytoin, Extended [Dilantin 200 mg PO DAILY #14 cer 03/17/17 Kapseals] Sulfamethoxazole/Trimethoprim 1 tab PO BID #10 tab 03/17/17 [Bactrim DS 800 mg-160 mg] Nitrofurantoin Macrocrystals 1 cap PO BID #14 cap 03/21/17 [Macrobid] Olopatadine HCl [Pataday] 1 drop OS DAILY PRN #1 bottle 04/13/17 Ibuprofen [Motrin] 600 mg PO Q8 PRN #15 tab 04/20/17 Cyclobenzaprine [Cyclobenzaprine 10 mg PO Q8 PRN #9 tab 05/09/17 HCl] Naproxen [Naprosyn] 500 mg PO BID PRN #14 tablet 05/09/17 Lidocaine 5% [Lidoderm] 1 ea TD DAILY PRN #10 patch 06/16/17 Meloxicam [Mobic] 15 mg PO DAILY PRN #15 tab 06/16/17 Levetiracetam [Keppra] 500 mg PO BID #14 tablet 06/24/17 Phenytoin, Extended [Dilantin 100 mg PO BID #14 tab 06/24/17 Kapseals] - Allergies Allergies/Adverse Reactions: Allergies Allergy/AdvReac Type Severity Reaction Status Date / Time ciprofloxacin [From Cipro] Allergy ITCHING Verified 06/23/17 22:14 ciprofloxacin HCl Allergy ITCHING Verified 06/23/17 22:14 [From Cipro] heparin Allergy RASH Verified 06/23/17 22:14 iodine Allergy SHORTNESS Verified 06/23/17 22:14 OF BREATH peanut Allergy SHORTNESS Verified 06/23/17 22:14 OF BREATH Penicillins Allergy RASH Verified 06/23/17 22:14 shellfish derived Allergy RASH Verified 06/23/17 22:14 baljit nuts Allergy SHORTNESS Uncoded 06/23/17 22:14 OF BREATH nuts Allergy SHORTNESS Uncoded 06/23/17 22:14 OF BREATH peanut butter Allergy SHORTNESS Uncoded 06/23/17 22:14 OF BREATH Review of Systems ROS Statement: Except As Marked, All Systems Reviewed And Found Negative Neurological: Positive for: Seizures, Dizziness Physical Exam - Reviewed Nursing Documentation Reviewed: Yes Vital Signs Reviewed: Yes - Physical Exam Appears: Positive for: Non-toxic, No Acute Distress Head Exam: Positive for: ATRAUMATIC, NORMOCEPHALIC Skin: Positive for: Normal Color, Warm, Dry Eye Exam: Positive for: Normal appearance ENT: Positive for: Normal ENT Inspection Neck: Positive for: Normal, Painless ROM, Supple Cardiovascular/Chest: Positive for: Regular Rate, Rhythm. Negative for: Murmur Respiratory: Positive for: Normal Breath Sounds. Negative for: Respiratory Distress Gastrointestinal/Abdominal: Positive for: Soft. Negative for: Tenderness Back: Positive for: Normal Inspection Extremity: Positive for: Normal ROM. 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 Negative for: Motor/Sensory Deficits - Laboratory Results Result Diagrams: 06/23/17 22:40 06/23/17 22:40 - ECG ECG Rhythm: Positive for: Sinus Rhythm. Negative for: ST/T Changes Rate: 80 O2 Sat by Pulse Oximetry: 100 (RA) Pulse Ox Interpretation: Normal - Radiology X-Ray: Interpreted by Me, Viewed By Me X-Ray Interpretation: No Acute Disease Medical Decision Making Medical Decision Makin Initial impression: breakthrough seizure due to medication noncompliance Initial plan: * Labs * Dilantin * Trop I * CXR * Keppra 500mg IVPB * NS IV * Urine C&S * NC - RESP * UA * Re-eval 2300 Accucheck: 104 0134 Patient has been seizure-free for duration of ED stay. pt states all previous symptoms have resolved. Patient is stable for discharge home and has been prescried Keppra. Patient will follow up with neurology tomorrow. Must fill prescription and be in compliance with medication. * Dilantin 100mg PO Scribe Attestation: Documented by Susanna Gutierrez acting as a scribe for Erica Reyes MD. Scribe Attestation: All medical record entries made by the Scribe were at my direction and personally dictated by me. I have reviewed the chart and agree that the record accurately reflects my personal performance of the history, physical exam, medical decision making, and the department course for this patient. I have also personally directed, reviewed, and agree with the discharge instructions and disposition. Disposition - Clinical Impression Clinical Impression: Seizure - Patient ED Disposition Is Patient to be Admitted: No Counseled Patient/Family Regarding: Studies Performed, Diagnosis, Need For Followup - Disposition Referrals: [facility] [Outside] Chin Chung MD [Staff Provider] - Disposition: Routine/Home Disposition Time: 01:40 Condition: IMPROVED Additional Instructions: follow up with your neurologist tomorrow return to ED with any worsening or concerning symptoms you need to take your medications as prescribed Prescriptions: Levetiracetam [Keppra] 500 mg PO BID #14 tablet Phenytoin, Extended [Dilantin Kapseals] 100 mg PO BID #14 tab Instructions: Epilepsy (ED) Forms: [employer] (Kyrgyz)
[2017-06-23 23:35] VITALS: PULSE 80
--- NOTE | 2017-06-24 00:06 | CT ---
EXAM: CT Head Without Intravenous Contrast CLINICAL HISTORY: 57 years old, female; Injury or trauma; Fall; Initial encounter; Blunt trauma (contusions or hematomas); Additional info: Headache TECHNIQUE: Axial computed tomography images of the head/brain without intravenous contrast. All CT scans at this facility use one or more dose reduction techniques, viz.: automated exposure control; ma/kV adjustment per patient size (including targeted exams where dose is matched to indication; i.e. head); or iterative reconstruction technique. Coronal and sagittal reformatted images were created and reviewed. COMPARISON: CT - HEAD W/O CONTRAST 03/17/2017 1:04:47 PM FINDINGS: Brain: Evidence of minimal chronic age-related changes. No hemorrhage. No edema. Ventricles: No hydrocephalus. Cavum septum pellucidum. Bones: Skull is intact. Sinuses: No acute sinusitis. Mastoid air cells: No mastoid effusion. IMPRESSION: No CT evidence of acute intracranial abnormality.
--- NOTE | 2017-06-24 00:07 | CT ---
EXAM: CT Cervical Spine Without Intravenous Contrast CLINICAL HISTORY: 57 years old, female; Injury or trauma; Fall; Initial encounter; Blunt trauma TECHNIQUE: Axial computed tomography images of the cervical spine without intravenous contrast. All CT scans at this facility use one or more dose reduction techniques, viz.: automated exposure control; ma/kV adjustment per patient size (including targeted exams where dose is matched to indication; i.e. head); or iterative reconstruction technique. Coronal and sagittal reformatted images were created and reviewed. COMPARISON: No relevant prior studies available. FINDINGS: There is no evidence for fracture of the cervical vertebrae. The is no acute subluxation. No suspicious lytic or blastic bony lesions are seen. Multilevel degenerative changes, most severe at C5-C6. There is degenerative disc disease with disc osteophyte formation. Some associated impression on the central canal and neuroforaminal narrowing. Mild vertebral body height loss. Straightening of the cervical lordosis at C5-C6. IMPRESSION: Negative for acute fracture.
--- NOTE | 2017-06-24 08:07 | RAD ---
HISTORY: Seizure. COMPARISON: 03/29/2017. FINDINGS: LUNGS: No active pulmonary disease. PLEURA: No significant pleural effusion identified, no pneumothorax apparent. CARDIOVASCULAR: No radiographic findings to suggest acute or significant cardiovascular disease. OSSEOUS STRUCTURES: No significant abnormalities. VISUALIZED UPPER ABDOMEN: Normal. OTHER FINDINGS: None. IMPRESSION: No active disease. No significant interval change compared to the prior examination(s). Concordant results with the preliminary interpretation rendered by the emergency department physician procedure.
== END 2017-06-24 02:50 | disposition home or self-care (01) ==
LOC: H.ER 22:09
DX: G40.909 Epilepsy, unspecified, not intractable, without status epilepticus (principal); Z91.14 Patient's other noncompliance with medication regimen; F41.9 Anxiety disorder, unspecified; I12.9 Hypertensive chronic kidney disease with stage 1 through stage 4 chronic kidney disease, or unspecified chronic kidney disease; Z88.0 Allergy status to penicillin; J45.909 Unspecified asthma, uncomplicated
CPT/HCPCS: 70450; 71010; 72125; 80053; 80185; 82948; 84484; 85025; 96374; 99284; J1953; J7040

== ENCOUNTER 2017-06-30 18:52 | Emergency (ER) | payer OTHER ==
[2017-06-30 18:52] VITALS: BMI 35.2
[2017-06-30 18:55] VITALS: BP 144/79; PULSE 62; RESP 18; TEMP 98; O2SAT 100
[2017-06-30 19:57] LABS: VENOUS BLOOD GAS BASE EXCESS 3.1 mmol/L (0.0-2.0); VENOUS BLOOD GAS PCO2 56 mmHg (40-60); VENOUS BLOOD PH 7.34 (7.32-7.43)
--- NOTE | 2017-06-30 20:05 | ED PDOC ---
Syncope/Near Syncope/Dizziness Time Seen by Provider: 06/30/17 18:56 Chief Complaint (Nursing): Seizure Chief Complaint (Provider): lightheaded History Per: Patient History/Exam Limitations: no limitations Onset/Duration Of Symptoms: Intermittent Episodes (for months) Current Symptoms Are (Timing): Gone Now Current Symptoms: lightheadedness Activity At Onset Of Symptoms: Other (had just eaten) Additional Complaint(s): Pt reports that she had episode of almost passing out today. She had been feeling lightheaded and then she tried to eat and it made her feel worse. She reports that a friend told her she "didn't look right" and suggested she go to the ER. She was just seen in [facility] for the same reason and discharged. She admits that she is tired and may have to sleep and that [facility] because [facility]. Seen in this ER and [facility] ER multiple times for same problem. Tilt table testing and cardiology testing this year negative. EEG September 2013 negative for epileptic activity. PMD: Rubio Noel Past Medical History Reviewed: Historical Data, Nursing Documentation, Vital Signs Vital Signs: Last Vital Signs Temp 98 F 06/30/17 18:53 Pulse 62 06/30/17 18:53 Resp 18 06/30/17 18:53 BP 144/79 06/30/17 18:53 Pulse Ox 100 06/30/17 18:53 - Medical History PMH: Anemia, Anxiety, Asthma, Back Problems, HTN, Kidney Stones, Migraine, Chronic Kidney Disease, Seizures (LAST WAS IN AUG PER PT) Comment Only: Hyperthyroidism (hyperparathyroidism ) - Surgical History Surgical History: - Family History Family History: States: Unknown Family Hx - Living Arrangements Living Arrangements: Other (Undomiciled/Nursing Home) - Social History Current smoker - smoking cessation education provided: No - Immunization History Hx Tetanus Toxoid Vaccination: Yes Hx Influenza Vaccination: Yes (05/2015) Hx Pneumococcal Vaccination: Yes (2012) - Home Medications Home Medications: Ambulatory Orders Medication Instructions Recorded Folic Acid 1 mg PO TID 11/19/15 Levetiracetam [Keppra] 500 mg PO BID 01/12/17 Phenytoin, Extended [Dilantin] 200 mg PO BID 01/28/17 Metoprolol Tartrate [Lopressor] 12.5 mg PO BID 09/25/17 Ambien 06/27/17 FLUoxetine [Prozac] 10 mg PO DAILY 06/27/17 Ferrous Sulfate TID 06/27/17 - Allergies Allergies/Adverse Reactions: Allergies Allergy/AdvReac Type Severity Reaction Status Date / Time ciprofloxacin [From Cipro] Allergy ITCHING Verified 06/30/17 12:58 ciprofloxacin HCl Allergy ITCHING Verified 06/30/17 12:58 [From Cipro] heparin Allergy RASH Verified 06/30/17 12:58 iodine Allergy SHORTNESS Verified 06/30/17 12:58 OF BREATH peanut Allergy SHORTNESS Verified 06/30/17 12:58 OF BREATH Penicillins Allergy RASH Verified 06/30/17 12:58 shellfish derived Allergy RASH Verified 06/30/17 12:58 baljit nuts Allergy SHORTNESS Uncoded 06/23/17 22:14 OF BREATH nuts Allergy SHORTNESS Uncoded 06/23/17 22:14 OF BREATH peanut butter Allergy SHORTNESS Uncoded 06/23/17 22:14 OF BREATH Review of Systems ROS Statement: Except As Marked, All Systems Reviewed And Found Negative Constitutional: Positive for: Weakness, Malaise Neurological: Positive for: Seizures, Dizziness. Negative for: Weakness, Numbness, Headache Physical Exam - Reviewed Nursing Documentation Reviewed: Yes Vital Signs Reviewed: Yes - Physical Exam Appears: Positive for: Well, Non-toxic, No Acute Distress Head Exam: Positive for: ATRAUMATIC, NORMOCEPHALIC Skin: Positive for: Warm, Dry Eye Exam: Positive for: EOMI, PERRL ENT: Negative for: Pharyngeal Erythema, Tonsillar Exudate Neck: Positive for: Painless ROM, Supple Cardiovascular/Chest: Positive for: Regular Rate, Rhythm, Chest Non Tender. Negative for: Murmur Respiratory: Positive for: Normal Breath Sounds. Negative for: Wheezing Gastrointestinal/Abdominal: Positive for: Soft. Negative for: Tenderness Back: Positive for: Normal Inspection. Negative for: Decreased ROM Extremity: Positive for: Normal ROM, Pedal Edema (trace). Negative for: Deformity Lymphatic: Negative for: Adenopathy Neurologic/Psych: Positive for: Alert. Negative for: Motor/Sensory Deficits - ECG O2 Sat by Pulse Oximetry: 100 - Progress ED Course And Treament: According to charts here and in [place], Ms Drew has been having these complaints recurrently for many months and has undergone workup with no serious findings. Currently she is stable and in no distress. In addition she was just seen earlier today at [facility] for same. She is stable for discharge. Disposition - Clinical Impression Clinical Impression: Syncope - Disposition Referrals: Shania Noel MD [Family Provider] - Disposition: Routine/Home Disposition Time: 20:05 Condition: GOOD Instructions: Weakness (ED)
== END 2017-06-30 20:48 | disposition home or self-care (01) ==
LOC: H.ER 18:52
DX: R55 Syncope and collapse (principal); Z59.0 Homelessness

== ENCOUNTER 2017-07-03 23:03 | Emergency (ER) | payer OTHER ==
[2017-07-03 23:04] VITALS: BMI 35.2
[2017-07-03 23:11] VITALS: BP 121/71; PULSE 67; RESP 16; TEMP 97.7; O2SAT 97
--- NOTE | 2017-07-03 23:28 | ED PDOC ---
HPI: General Adult Time Seen by Provider: 07/03/17 23:13 Chief Complaint (Nursing): GI Problem Chief Complaint (Provider): Dizziness, lightheadedness History Per: Patient History/Exam Limitations: no limitations Onset/Duration Of Symptoms: Mins Have you had recent travel within the past 21 days to any of the following countries: [place], [place], [place] or [place]?: No Current Symptoms Are (Timing): Better Additional History Per: Patient Additional Complaint(s): The patient is a 57yo female, currently undomiciled, presents to the ED for evaluation of dizziness and lightheadedness with associated syncopal episode prior to arrival. Patient reports her roommate at the custodial was using [place] and clorox bleach to clean, and the fumes caused her to pass out. She reports feeling much better upon arrival but states she still has a headache and feels "foggy." She denies any other medical complaints. Past Medical History Reviewed: Historical Data, Nursing Documentation, Vital Signs Vital Signs: Last Vital Signs Temp 97.7 F 07/03/17 23:06 Pulse 67 07/03/17 23:06 Resp 16 07/03/17 23:06 BP 121/71 07/03/17 23:06 Pulse Ox 97 07/03/17 23:30 - Medical History PMH: Anemia, Anxiety, Asthma, Back Problems, HTN, Kidney Stones, Migraine, Chronic Kidney Disease, Seizures (LAST WAS IN AUG PER PT) Comment Only: Hyperthyroidism (hyperparathyroidism ) - Surgical History Surgical History: - Family History Family History: States: Unknown Family Hx - Living Arrangements Living Arrangements: Other (undomiciled) - Immunization History Hx Tetanus Toxoid Vaccination: Yes Hx Influenza Vaccination: Yes (05/2015) Hx Pneumococcal Vaccination: Yes (2012) - Home Medications Home Medications: Ambulatory Orders Medication Instructions Recorded Folic Acid 1 mg PO TID 11/19/15 Levetiracetam [Keppra] 500 mg PO BID 01/12/17 Phenytoin, Extended [Dilantin] 200 mg PO BID 01/28/17 Metoprolol Tartrate [Lopressor] 12.5 mg PO BID 06/24/17 Ambien 06/27/17 FLUoxetine [Prozac] 10 mg PO DAILY 06/27/17 Ferrous Sulfate TID 06/27/17 - Allergies Allergies/Adverse Reactions: Allergies Allergy/AdvReac Type Severity Reaction Status Date / Time ciprofloxacin [From Cipro] Allergy ITCHING Verified 07/03/17 23:06 ciprofloxacin HCl Allergy ITCHING Verified 07/03/17 23:06 [From Cipro] heparin Allergy RASH Verified 07/03/17 23:06 iodine Allergy SHORTNESS Verified 07/03/17 23:06 OF BREATH peanut Allergy SHORTNESS Verified 07/03/17 23:06 OF BREATH Penicillins Allergy RASH Verified 07/03/17 23:06 shellfish derived Allergy RASH Verified 07/03/17 23:06 baljit nuts Allergy SHORTNESS Uncoded 07/03/17 23:06 OF BREATH nuts Allergy SHORTNESS Uncoded 07/03/17 23:06 OF BREATH peanut butter Allergy SHORTNESS Uncoded 07/03/17 23:06 OF BREATH Review of Systems ROS Statement: Except As Marked, All Systems Reviewed And Found Negative Cardiovascular: Positive for: Light Headedness Neurological: Positive for: Headache, Dizziness, Other (syncopal episode) Physical Exam - Reviewed Nursing Documentation Reviewed: Yes Vital Signs Reviewed: Yes - Physical Exam Appears: Positive for: Non-toxic, No Acute Distress Head Exam: Positive for: ATRAUMATIC, NORMAL INSPECTION, NORMOCEPHALIC Skin: Positive for: Warm, Dry Eye Exam: Positive for: Normal appearance Neck: Positive for: Supple Cardiovascular/Chest: Positive for: Regular Rate, Rhythm Respiratory: Positive for: Normal Breath Sounds. Negative for: Wheezing, Respiratory Distress Gastrointestinal/Abdominal: Positive for: Normal Exam Neurologic/Psych: Positive for: Alert, Oriented. Negative for: Motor/Sensory Deficits - ECG O2 Sat by Pulse Oximetry: 97 (RA) Pulse Ox Interpretation: Normal Medical Decision Making Medical Decision Making: Time: 2320 Impression: Dizziness and nausea secondary to exposure to fumes from cleaning products Plan: -- O2 via simple mask Reassess 2359 Pt feeling better, will d/c home. Scribe Attestation: Documented by Paige King acting as a scribe for Delano Saavedra MD. Provider Attestation: All medical record entries made by the Scribe were at my direction and personally dictated by me. I have reviewed the chart and agree that the record accurately reflects my personal performance of the history, physical exam, medical decision making, and the department course for this patient. I have also personally directed, reviewed, and agree with the discharge instructions and disposition. Disposition - Clinical Impression Clinical Impression: Dizziness - Patient ED Disposition Is Patient to be Admitted: No - Disposition Referrals: [facility] [Outside] Disposition: Routine/Home Disposition Time: 23:59 Condition: STABLE Instructions: Poison Proofing Your Home (ED), Dizziness (ED) Forms: [employer] (Slovak)
== END 2017-07-04 01:17 | disposition home or self-care (01) ==
LOC: H.ER 23:03
DX: R42 Dizziness and giddiness (principal)

== ENCOUNTER 2017-07-10 08:28 | Emergency (ER) | payer OTHER ==
[2017-07-10 08:29] VITALS: BMI 35.2
[2017-07-10] MEDS ORDERED: Sodium Chloride 0.9% 500 ML IV SCH (09:30)
--- NOTE | 2017-07-10 09:37 | ED PDOC ---
Syncope/Near Syncope/Dizziness Time Seen by Provider: 07/10/17 09:11 Chief Complaint (Nursing): Dizziness/Lightheaded Chief Complaint (Provider): Syncopal episode History Per: Patient History/Exam Limitations: no limitations Onset/Duration Of Symptoms: Hrs (x1) Current Symptoms Are (Timing): Better Number Of Syncopal Episodes: 2 Fall Associated With With Symptoms: Yes Additional History Per: EMS Additional Complaint(s): Nafisa Drew is a 57 y/o female with a past medical history of seizures, depression, anxiety, asthma, and hypertension, who was brought to the ED via EMS after syncopal episode this morning at [facility]. Reports she was about to take seizure medication Dilantin, when her head began feeling abnormal, as if it was filled with cool air, and then became short of breath and passed out. Denies any chest pain, vision changes, room spinning, dizziness, or lightheadedness prior to syncopal episode. She notes feeling as if she couldnt move her tongue, with the tip of her tongue tingling this morning, but denies extremity numbness/weakness/tingling. Patient has been having similar episodes for the past 2 months, and has been admitted here with negative work up in the past. Of note, patient is on Dilantin and Keppra for seizure control, but is no longer seeing her previous neurologist. Requesting referral to new neurologist. Also taking Prozac, unknown medication for blood pressure. PMD: Dr. Noel Past Medical History Reviewed: Historical Data, Nursing Documentation, Vital Signs Vital Signs: Last Vital Signs Temp 97.8 F 07/10/17 08:33 Pulse 86 07/10/17 08:33 Resp 20 07/10/17 08:33 BP 111/61 07/10/17 08:33 Pulse Ox 98 07/10/17 08:34 - Medical History PMH: Anemia, Anxiety, Asthma, Back Problems, HTN, Kidney Stones, Migraine, Chronic Kidney Disease, Seizures (LAST WAS IN AUG PER PT) Denies: Diabetes Comment Only: Hyperthyroidism (hyperparathyroidism ) Other PMH: low blood sugar - Surgical History Surgical History: - Family History Family History: States: Unknown Family Hx - Immunization History Hx Tetanus Toxoid Vaccination: Yes Hx Influenza Vaccination: Yes (05/2015) Hx Pneumococcal Vaccination: Yes (2012) - Home Medications Home Medications: Ambulatory Orders Medication Instructions Recorded Folic Acid 1 mg PO TID 11/19/15 Levetiracetam [Keppra] 500 mg PO BID 01/12/17 Phenytoin, Extended [Dilantin] 200 mg PO BID 01/28/17 Metoprolol Tartrate [Lopressor] 12.5 mg PO BID 06/24/17 Ambien 06/27/17 FLUoxetine [Prozac] 10 mg PO DAILY 06/27/17 Ferrous Sulfate TID 06/27/17 - Allergies Allergies/Adverse Reactions: Allergies Allergy/AdvReac Type Severity Reaction Status Date / Time ciprofloxacin [From Cipro] Allergy ITCHING Verified 07/10/17 08:34 ciprofloxacin HCl Allergy ITCHING Verified 07/10/17 08:34 [From Cipro] heparin Allergy RASH Verified 07/10/17 08:34 iodine Allergy SHORTNESS Verified 07/10/17 08:34 OF BREATH peanut Allergy SHORTNESS Verified 07/10/17 08:34 OF BREATH Penicillins Allergy RASH Verified 07/10/17 08:34 shellfish derived Allergy RASH Verified 07/10/17 08:34 bajlit nuts Allergy SHORTNESS Uncoded 07/10/17 08:34 OF BREATH nuts Allergy SHORTNESS Uncoded 07/10/17 08:34 OF BREATH peanut butter Allergy SHORTNESS Uncoded 07/10/17 08:34 OF BREATH Review of Systems ROS Statement: Except As Marked, All Systems Reviewed And Found Negative Constitutional: Positive for: Weakness (generalized) Eyes: Negative for: Vision Change Cardiovascular: Negative for: Chest Pain Respiratory: Positive for: Shortness of Breath Neurological: Positive for: Other (Syncopal episode). Negative for: Weakness, Numbness, Dizziness Physical Exam - Reviewed Nursing Documentation Reviewed: Yes Vital Signs Reviewed: Yes - Physical Exam Appears: Positive for: Non-toxic, No Acute Distress Head Exam: Positive for: ATRAUMATIC, NORMAL INSPECTION, NORMOCEPHALIC Skin: Positive for: Normal Color, Warm, Dry Eye Exam: Positive for: EOMI, Normal appearance, PERRL Neck: Positive for: Normal, Painless ROM, Supple Cardiovascular/Chest: Positive for: Regular Rate, Rhythm. Negative for: Murmur Respiratory: Positive for: Normal Breath Sounds. Negative for: Accessory Muscle Use, Respiratory Distress Gastrointestinal/Abdominal: Positive for: Normal Exam, Soft. Negative for: Tenderness Back: Positive for: Normal Inspection. Negative for: L CVA Tenderness, R CVA Tenderness, Vertebral Tenderness Extremity: Positive for: Normal ROM. 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 Negative for: Motor/Sensory Deficits, Facial Droop - Laboratory Results Result Diagrams: 07/10/17 10:06 07/10/17 10:06 Interpretation Of Abn Labs: dilantin less then 3 - ECG ECG: Positive for: Interpreted By Me, Viewed By Me ECG Rhythm: Positive for: Normal QRS, Normal ST Segment, Sinus Rhythm O2 Sat by Pulse Oximetry: 98 (RA) Pulse Ox Interpretation: Normal - Radiology X-Ray: Interpreted by Me, Viewed By Me X-Ray Interpretation: No Acute Disease - CT Scan/US CT Head w/o contrast Other Rad Studies (CT/US): Read By Radiologist Other Rad Interpretation: Unremarkable unenhanced head CT. No acute intracranial findings. - Progress ED Course And Treament: 1310: Stable. AAOx3. Has no dizziness currently. Multiple ER visits for same. Per previous notes has had extensive work up for her symptoms. Today symptoms started after smelling something bad. Fu with neurology. Ambulated with no issues. Tolerated PO. Will load cerebryx Pain free. Medical Decision Making Medical Decision Making: Time: 9:27 Initial Impression: Syncope Initial Plan: --EKG --Accucheck --CMP --Dilantin --Hb A1c --Lipid panel --Troponin I --CBC --PTT --Prothrombin time --Levetiracetam --Blood type and screen --Chest x-ray --NS IV 500 ml at 100 mls/hr --CT Head w/o contrast Scribe Attestation: Documented by Trinidad Soto, acting as a scribe for Jayden Mccauley MD Provider Scribe Attestation: All medical record entries made by the Scribe were at my direction and personally dictated by me. I have reviewed the chart and agree that the record accurately reflects my personal performance of the history, physical exam, medical decision making, and the department course for this patient. I have also personally directed, reviewed, and agree with the discharge instructions and disposition. Disposition - Clinical Impression Clinical Impression: Syncope, Subtherapeutic serum dilantin level - Patient ED Disposition Is Patient to be Admitted: No Counseled Patient/Family Regarding: Studies Performed, Diagnosis, Need For Followup - Disposition Referrals: [facility] [Outside] - 07/11/17 Andrés Chung MD [Staff Provider] - 07/11/17 Disposition: Routine/Home Disposition Time: 13:13 Condition: STABLE Additional Instructions: Return if not better in 3 days. Instructions: Syncope (ED) Forms: [facility] [employer] (Panamanian)
[2017-07-10 10:18] LABS: BASO # 0.1 K/uL (0.0-0.2); BASO % 1.2 % (0.0-2.0); EOS # 0.1 K/uL (0.0-0.7); EOS % 2.1 % (0.0-4.0); HEMATOCRIT 43.2 % (34.0-47.0); LYMPH # 2.3 K/uL (1.0-4.3); LYMPH % 40.8 % (20.0-40.0); MEAN CELL VOLUME 87.7 fl (81.0-99.0); MEAN CORPUSCULAR HEMOGLOBIN 29.1 pg (27.0-31.0); MEAN CORPUSCULAR HGB CONC 33.2 g/dL (33.0-37.0); MEAN PLATELET VOLUME 11.1 fl (7.2-11.7); MONO # 0.3 K/uL (0.0-0.8); NEUT # 2.9 K/uL (1.8-7.0); NEUT % 49.9 % (50.0-75.0); NRBC % 0.2 % (0.0-0.0); RED CELL DISTRIBUTION WIDTH 13.2 % (11.5-14.5); WHITE BLOOD COUNT 5.8 K/uL (4.8-10.8)
[2017-07-10 10:35] LABS: ALB/GLOB RATIO 1.2 (1.0-2.1); ALKALINE PHOSPHATASE 139 U/L (38-126); ALT/SGPT 30 U/L (9-52); AST/SGOT 22 U/L (14-36); BILIRUBIN,TOTAL 0.2 mg/dl (0.2-1.3); BLOOD UREA NITROGEN 15 mg/dl (7-17); CALCIUM 11.3 mg/dL (8.4-10.2); CARBON DIOXIDE 23 mmol/L (22-30); CHLORIDE 108 mmol/L (98-107); CHOLESTEROL 169 mg/dL (0-199); GFR AFRICAN-AMERICAN > 60; GLUCOSE,RANDOM 129 mg/dL (65-105); SODIUM 142 mmol/l (132-148); TOTAL PROTEIN 7.6 G/DL (6.3-8.2)
[2017-07-10 10:37] LABS: PARTIAL THROMBOPLASTIN TIME 28.6 Seconds (25.6-37.1)
--- NOTE | 2017-07-10 11:44 | CT ---
PROCEDURE: CT HEAD WITHOUT CONTRAST. HISTORY: code stroke COMPARISON: Unenhanced head CT 06/23/2017. TECHNIQUE: Axial computed tomography images were obtained through the head/brain without intravenous contrast. Radiation dose: Total exam DLP = 832.96 mGy-cm. This CT exam was performed using one or more of the following dose reduction techniques: Automated exposure control, adjustment of the mA and/or kV according to patient size, and/or use of iterative reconstruction technique. FINDINGS: HEMORRHAGE: No intracranial hemorrhage. BRAIN: Corticomedullary differentiation remains normal and no definite cortical edema is appreciated or mass effect. There is no suspicious extra-axial fluid collection identified. The posterior fossa contents appear diffusely unremarkable. 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 No hydrocephalus. CALVARIUM: Unremarkable. PARANASAL SINUSES: Unremarkable as visualized. No significant inflammatory changes. MASTOID AIR CELLS: Unremarkable as visualized. No inflammatory changes. OTHER FINDINGS: None. IMPRESSION: Unremarkable unenhanced head CT. No acute intracranial findings or significant interval change compared to prior head CT dated 06/23/2017. Follow-up CT or MRI available as indicated. Findings were discussed with Dr. Mccauley 07/10/2017 9:37 a.m..
[2017-07-10] MEDS ORDERED: Phenytoin 100 mg/2 ml Inj IVP STA (13:03)
[2017-07-10] MEDS ORDERED: Fosphenytoin 100 mg/2 ml Inj ONE (13:13)
[2017-07-10 15:30] VITALS: BP 132/75; PULSE 78; RESP 18; TEMP 98.2; O2SAT 100
--- NOTE | 2017-07-10 15:51 | RAD ---
HISTORY: syncope eval COMPARISON: Chest radiographs 06/23/2017. FINDINGS: LUNGS: No active pulmonary disease. History volume appears increased. PLEURA: No significant pleural effusion identified, no pneumothorax apparent. CARDIOVASCULAR: Upper limits normal cardiac silhouette. No pulmonary vascular derangement identified. OSSEOUS STRUCTURES: No significant abnormalities. VISUALIZED UPPER ABDOMEN: Normal. OTHER FINDINGS: None. IMPRESSION: No acute pulmonary disease. Upper limits normal cardiac silhouette. No pulmonary vascular derangement identified.
--- NOTE | 2017-07-10 18:14 | CARD ---
APPROVED REPORT EKG Measurement Heart [id number] <Conclusion> Normal sinus rhythm Normal ECG
== END 2017-07-10 15:32 | disposition home or self-care (01) ==
LOC: H.ER 08:28
DX: R55 Syncope and collapse (principal); Z86.69 Personal history of other diseases of the nervous system and sense organs
CPT/HCPCS: 70450; 71010; 80053; 80061; 80185; 80299; 82948; 83036; 84484; 85025; 85610; 85730; 86850; 86900; 93005; 96360; 99283; J7040; Q2009

== ENCOUNTER 2017-07-26 06:03 | Emergency (ER) | payer OTHER ==
[2017-07-26 06:11] VITALS: BMI 35.9
[2017-07-26 06:13] VITALS: O2SAT 100
--- NOTE | 2017-07-26 06:50 | ED PDOC ---
HPI: Back <Ely Carney - Last Filed: 07/26/17 09:31> Additional Complaint(s): 57F BIBA for acute onset lower back affecting ability to move her lower extremities. Patient reports she awoke at 0200 to "go to the bathroom" and found she couldn't due to inability to move all her extremities at first bilaterally. She then "shook her arms out" and was able to move arms but was still unable to get up to void. This is associated with lower, non-radiating back pain but when she raises her upper extremities she states she can feel the pulling in her lower back. She denies any bowel/bladder incontinence and says her sensation is intact. She denies any pain/burning/frequency of urination. Pt does report 1 week of sore throat, cough, congestion, and subjective fever. Otherwise, no acute SOB, chest pain. Last seen at [facility] 07/24/2017. PMD: Heri Noel PMH: HTN, Vertigo, chronic photosensitivity, seizures, Asthma, Anemia, Migraines PSH: Rt Knee, C-sxn Allergies: Lovenox, Cipro, PCN <Payton Luna - Last Filed: 07/26/17 09:43> Time Seen by Provider: 07/26/17 06:21 Chief Complaint (Nursing): Back Pain Past Medical History Vital Signs: Last Vital Signs Temp 98.0 F 07/26/17 06:11 Pulse 76 07/26/17 06:11 Resp 16 07/26/17 06:11 BP 141/74 07/26/17 06:11 Pulse Ox 100 07/26/17 08:29 <Ely Carney - Last Filed: 07/26/17 09:31> Vital Signs: Last Vital Signs Temp 36.7 C 07/26/17 06:11 Pulse 76 07/26/17 06:11 Resp 16 07/26/17 06:11 BP 141/74 07/26/17 06:11 Pulse Ox 100 07/26/17 06:11 - Medical History PMH: Anemia, Anxiety, Asthma, Back Problems, HTN, Kidney Stones, Migraine, Chronic Kidney Disease, Seizures (LAST WAS IN DEC PER PT) Denies: Diabetes Comment Only: Hyperthyroidism (hyperparathyroidism ) - Surgical History Surgical History: - Family History Family History: States: Unknown Family Hx - Immunization History Hx Tetanus Toxoid Vaccination: Yes Hx Influenza Vaccination: Yes (05/2017) Hx Pneumococcal Vaccination: Yes (2014) <Payton Luna - Last Filed: 07/26/17 09:43> - Home Medications Home Medications: Ambulatory Orders Medication Instructions Recorded Folic Acid 1 mg PO TID 11/19/15 Levetiracetam [Keppra] 500 mg PO BID 01/12/17 Phenytoin, Extended [Dilantin] 200 mg PO BID 01/28/17 Metoprolol Tartrate [Lopressor] 12.5 mg PO BID 06/24/17 Ambien 06/27/17 FLUoxetine [Prozac] 10 mg PO DAILY 06/27/17 Ferrous Sulfate TID 06/27/17 Cyclobenzaprine [Cyclobenzaprine 10 mg PO TID PRN #30 tab 07/26/17 HCl] Naproxen [Naprosyn] 500 mg PO Q12 #20 tablet 07/26/17 - Allergies Allergies/Adverse Reactions: Allergies Allergy/AdvReac Type Severity Reaction Status Date / Time ciprofloxacin [From Cipro] Allergy ITCHING Verified 07/26/17 06:11 ciprofloxacin HCl Allergy ITCHING Verified 07/26/17 06:11 [From Cipro] heparin Allergy RASH Verified 07/26/17 06:11 iodine Allergy SHORTNESS Verified 07/26/17 06:11 OF BREATH peanut Allergy SHORTNESS Verified 07/26/17 06:11 OF BREATH Penicillins Allergy RASH Verified 07/26/17 06:11 shellfish derived Allergy RASH Verified 07/26/17 06:11 baljit nuts Allergy SHORTNESS Uncoded 07/26/17 06:11 OF BREATH nuts Allergy SHORTNESS Uncoded 07/26/17 06:11 OF BREATH peanut butter Allergy SHORTNESS Uncoded 07/26/17 06:11 OF BREATH Supervising Attending Note - Supervising Attending Note The Documented history was done by the: Physician Training Manager The documented physical exam was done by the: Physician Training Manager The documented procedures were done by the: Physician Training Manager - Attestation: I have personally seen and examined this patient.: Yes I have fully participated in the care of the patient.: Yes I have reviewed all pertinent clinical information: Yes <Ely Carney - Last Filed: 07/26/17 09:31> Review of Systems ROS Statement: Except As Marked, All Systems Reviewed And Found Negative Constitutional: Positive for: Fever (subjective, not measured) Eyes: Positive for: Other (Chronic photosensitivity) ENT: Positive for: Nose Congestion, Throat Pain. Negative for: Ear Pain Respiratory: Positive for: Cough (yellowish sputum) Musculoskeletal: Positive for: Arm Pain (bilateral), Back Pain (lower, bilateral ) Neurological: Positive for: Weakness (lower bilateral extremities) <Payton Luna - Last Filed: 07/26/17 09:43> Physical Exam - Reviewed Vital Signs Reviewed: Yes - Physical Exam Appears: Positive for: Well, Non-toxic, In Acute Distress (lower back pain) Skin: Positive for: Normal Color, Warm, Dry Eye Exam: Positive for: Normal appearance, EOMI, PERRL. Negative for: Nystagmus ENT: Positive for: Pharynx Is (clear) Neck: Positive for: Normal, Supple. Negative for: Pain On Movement Of Neck Cardiovascular/Chest: Positive for: Regular Rate, Rhythm. Negative for: JVD Respiratory: Positive for: Normal Breath Sounds. Negative for: Rhonchi, Wheezing Pulses-Radial (L): 2+ Pulses-Radial (R): 2+ Gastrointestinal/Abdominal: Positive for: Normal Exam, Bowel Sounds, Soft. Negative for: Tenderness Back: Positive for: Other (Straight leg test positive bilateral). Negative for : L CVA Tenderness, R CVA Tenderness, Vertebral Tenderness, Muscle Spasm Extremity: Positive for: Capillary Refill (<3s). 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 Negative for: Gait (not completed due to lower extremity weakness), Aphasia, Facial Droop <Payton Luna - Last Filed: 07/26/17 09:43> - Laboratory Results Result Diagrams: 07/26/17 06:57 07/26/17 06:57 <Ely Carney - Last Filed: 07/26/17 09:31> - Laboratory Results Result Diagrams: 07/26/17 06:57 07/26/17 06:57 - ECG O2 Sat by Pulse Oximetry: 100 <Payton Luna - Last Filed: 07/26/17 09:43> Medical Decision Making Medical Decision Making: Suspect possible muscle spasm vs. disc herniation - CBC: mild leukopenia w/o neutropenia - CMP: hyperchloremia and chronic hypercalcemia - U preg: negative - Keppra Level: Pending - Dilantin Level: <3.0 - Toradol/Flexeril: given - CT Lumbar spine: no significant canal stenosis or disc herniation, L3 hemangioma incidentally noted 0930: Patient able to stand and walk with walker (which is baseline). Still with some lower back pain, but motor is intact. Needs to follow up for incidental L3 hemangioma finding. <Payton Luna - Last Filed: 07/26/17 09:43> Disposition - Patient ED Disposition Is Patient to be Admitted: No Doctor Will See Patient In The: Office Counseled Patient/Family Regarding: Diagnosis, Need For Followup, Rx Given - Disposition Disposition: Routine/Home Disposition Time: 09:31 - POA Present On Arrival: None <Ely Carney - Last Filed: 07/26/17 09:31> - Patient ED Disposition Is Patient to be Admitted: No - Disposition Disposition: Routine/Home <Payton Luna - Last Filed: 07/26/17 09:43> - Clinical Impression Clinical Impression: Back disorder - Disposition Referrals: [facility] [Outside] (Or other primary care doctor within 1 week) Condition: STABLE Prescriptions: Cyclobenzaprine [Cyclobenzaprine HCl] 10 mg PO TID PRN #30 tab PRN Reason: back pain Naproxen [Naprosyn] 500 mg PO Q12 #20 tablet Instructions: Back Pain (ED) Forms: [employer] (Qatari)
[2017-07-26 07:09] LABS: EOS # 0.1 K/uL (0.0-0.7); EOS % 3.3 % (0.0-4.0); HEMATOCRIT 42.1 % (34.0-47.0); LYMPH # 1.9 K/uL (1.0-4.3); LYMPH % 43.6 % (20.0-40.0); MEAN CELL VOLUME 88.5 fl (81.0-99.0); MEAN CORPUSCULAR HEMOGLOBIN 28.7 pg (27.0-31.0); MEAN CORPUSCULAR HGB CONC 32.4 g/dL (33.0-37.0); MEAN PLATELET VOLUME 9.8 fl (7.2-11.7); MONO # 0.4 K/uL (0.0-0.8); NEUT # 1.8 K/uL (1.8-7.0); NEUT % 42.1 % (50.0-75.0); NRBC % 0.1 % (0.0-0.0); RED CELL DISTRIBUTION WIDTH 13.2 % (11.5-14.5); WHITE BLOOD COUNT 4.4 K/uL (4.8-10.8)
[2017-07-26 07:25] LABS: ALB/GLOB RATIO 1.1 (1.0-2.1); ALKALINE PHOSPHATASE 120 U/L (38-126); ALT/SGPT 37 U/L (9-52); AST/SGOT 28 U/L (14-36); BILIRUBIN,TOTAL 0.4 mg/dl (0.2-1.3); BLOOD UREA NITROGEN 15 mg/dl (7-17); CALCIUM 11.3 mg/dL (8.4-10.2); CARBON DIOXIDE 23 mmol/L (22-30); CHLORIDE 109 mmol/L (98-107); GFR AFRICAN-AMERICAN > 60; GLUCOSE,RANDOM 106 mg/dL (65-105); SODIUM 142 mmol/l (132-148); TOTAL PROTEIN 7.5 G/DL (6.3-8.2)
[2017-07-26 07:27] LABS: POTASSIUM 4.4 MMOL/L (3.6-5.0)
--- NOTE | 2017-07-26 08:35 | CT ---
PROCEDURE: CT Lumbar Spine without contrast HISTORY: lower back pain COMPARISON: None. TECHNIQUE: Axial computed tomography images were obtained of the lumbar spine without the use of intravenous contrast. Coronal and sagittal reformatted images were created and reviewed. Radiation dose: Total exam DLP = 1337.13 mGy-cm. This CT exam was performed using one or more of the following dose reduction techniques: Automated exposure control, adjustment of the mA and/or kV according to patient size, and/or use of iterative reconstruction technique. FINDINGS: VERTEBRAE: Normal lumbar curvature is appreciated without fracture or spondylolisthesis identified. A benign hemangioma is probable at the L3 vertebral body. Vacuum disc changes are identified at L4-5 likely intra and indicating advanced degenerative disease here. Endplate changes are irregular at the superior plate of L5 and may also be degenerative. Lucency the endplate is nonspecific. Follow-up MRI is advised to exclude potential active erosive process though this is not favored. No inferior endplate is seen at the other side of the interspace at the inferior L4 vertebral body. Mild multilevel spondylosis appreciated the small nonspecific lucency seen at the left side of the S1 vertebral body. Multilevel facet joint degenerative arthropathy is identified with prevertebral soft tissues grossly nonfocal. Incidental note is made of partially imaged rounded structure the pelvis possibly representing enlarged uterus or distended urinary bladder. DISCS/SPINAL CANAL/NEURAL FORAMINA: L1-2: Unremarkable. L2-3: Unremarkable. L3-4: Limited disc bulging is appreciated combined with limited facet joint degenerative change encroaching the bilateral lateral recesses. Lateral asymmetry in the bulging results in mild left but no significant right neural foraminal stenosis. L4-5: A large generalized disc bulge combines with mild facet joint degenerative change resulting in a mild central canal stenosis, particularly concentrated at the lateral recesses which are nearly obliterated. Mild bilateral neural foraminal stenoses are encountered symmetrically. L5-S1: [id number] generalized disc bulging encroaches the descending bilateral S1 nerve roots without causing significant central canal stenosis. Moderate facet arthropathy is encountered. No gross disc herniation is appreciated throughout the exam. MRI is more sensitive. OTHER FINDINGS: None. IMPRESSION: 1. A mild degenerative central canal stenosis identified at L4-5, borderline at L3-4. 2. No severe central canal stenosis. No gross disc herniation appreciated throughout the exam. MRI is more sensitive in evaluation of disc herniations and can be performed if clinically warranted. 3. Irregular partially erosive changes seen at the superior endplate L5 with vacuum disc changes at the L4-5 intervertebral disc. These endplate changes may be degenerative however precautionary MRI is recommended to exclude potential discitis/osteomyelitis pattern developing here. 4. Normal curvature with no fracture or spondylolisthesis. Likely large benign hemangioma L3 vertebral body.
[2017-07-26 10:22] VITALS: BP 116/74; PULSE 70; RESP 18; TEMP 97.4
== END 2017-07-26 09:45 | disposition home or self-care (01) ==
LOC: H.ER 06:03
DX: M54.9 Dorsalgia, unspecified (principal); E05.90 Thyrotoxicosis, unspecified without thyrotoxic crisis or storm; E21.3 Hyperparathyroidism, unspecified; F41.9 Anxiety disorder, unspecified; I12.9 Hypertensive chronic kidney disease with stage 1 through stage 4 chronic kidney disease, or unspecified chronic kidney disease; J45.909 Unspecified asthma, uncomplicated; M48.061 Spinal stenosis, lumbar region without neurogenic claudication; Z87.442 Personal history of urinary calculi; Z88.0 Allergy status to penicillin
CPT/HCPCS: 72131; 80053; 80185; 80299; 81025; 85025; 96372; 99284; J1885

== ENCOUNTER 2017-10-09 05:26 | Emergency (ER) | payer OTHER ==
[2017-10-09 05:27] VITALS: BMI 35.9
[2017-10-09 05:37] VITALS: BP 148/94; PULSE 92; RESP 18; TEMP 98.5; O2SAT 98
--- NOTE | 2017-10-09 06:06 | ED PDOC ---
HPI: General Adult Time Seen by Provider: 10/09/17 05:34 Chief Complaint (Nursing): Cough, Cold, Congestion Chief Complaint (Provider): Flu-like Symptoms History Per: Patient History/Exam Limitations: no limitations Onset/Duration Of Symptoms: Days (x4) Current Symptoms Are (Timing): Still Present Additional Complaint(s): 57 year old female presents to ED with complaints of flu-like symptoms x4 days and has a past medical history of anemia, asthma, hypoglycemia, and hypotension. (+) productive cough with yellow sputum, rhinorrhea, nasal congestion, and suprapubic pain. (-) fever, vomiting, or diarrhea. Patient believes she may have a UTI. PCP: None Past Medical History Reviewed: Historical Data, Nursing Documentation, Vital Signs Vital Signs: Last Vital Signs Temp 98.5 F 10/09/17 05:34 Pulse 92 H 10/09/17 05:34 Resp 18 10/09/17 05:34 BP 148/94 H 10/09/17 05:34 Pulse Ox 98 10/09/17 07:10 - Medical History PMH: Anemia, Anxiety, Asthma, Back Problems, HTN, Hyperthyroidism ( hyperparathyroidism ), Kidney Stones, Migraine, Chronic Kidney Disease, Seizures (LAST WAS IN AUG PER PT) Denies: Diabetes - Surgical History Surgical History: Denies: No Surg Hx Other surgeries: shoulder and leg surgery - Family History Family History: States: Unknown Family Hx - Social History Current smoker - smoking cessation education provided: No Ex-Smoker (has not smoked in the last 12 months): No Alcohol: None Drugs: Denies - Immunization History Hx Tetanus Toxoid Vaccination: Yes Hx Influenza Vaccination: Yes (05/2017) Hx Pneumococcal Vaccination: Yes (2014) - Home Medications Home Medications: Ambulatory Orders Medication Instructions Recorded Folic Acid 1 mg PO TID 11/19/15 Metoprolol Tartrate [Lopressor] 12.5 mg PO BID 06/24/17 FLUoxetine [Prozac] 10 mg PO DAILY 06/27/17 Levetiracetam [Keppra] 500 mg PO BID #14 tablet 08/05/17 Levetiracetam [Keppra] 250 mg PO BID #60 tab 08/12/17 - Allergies Allergies/Adverse Reactions: Allergies Allergy/AdvReac Type Severity Reaction Status Date / Time ciprofloxacin [From Cipro] Allergy ITCHING Verified 08/16/17 12:38 ciprofloxacin HCl Allergy ITCHING Verified 08/16/17 12:38 [From Cipro] heparin Allergy RASH Verified 08/16/17 12:38 iodine Allergy SHORTNESS Verified 08/16/17 12:38 OF BREATH peanut Allergy SHORTNESS Verified 08/16/17 12:38 OF BREATH Penicillins Allergy RASH Verified 08/16/17 12:38 shellfish derived Allergy RASH Verified 08/16/17 12:38 baljit nuts Allergy SHORTNESS Uncoded 08/12/17 10:21 OF BREATH nuts Allergy SHORTNESS Uncoded 08/12/17 10:21 OF BREATH peanut butter Allergy SHORTNESS Uncoded 08/12/17 10:21 OF BREATH Review of Systems ROS Statement: Except As Marked, All Systems Reviewed And Found Negative Constitutional: Negative for: Fever ENT: Positive for: Nose Discharge, Nose Congestion Respiratory: Positive for: Cough, Sputum (yellow) Gastrointestinal: Positive for: Abdominal Pain (suprapubic). Negative for: Vomiting, Diarrhea Physical Exam - Reviewed Nursing Documentation Reviewed: Yes Vital Signs Reviewed: Yes - Physical Exam Appears: Positive for: Non-toxic, No Acute Distress (obese) Skin: Positive for: Normal Color, Warm, Dry Eye Exam: Positive for: Normal appearance ENT: Positive for: Normal ENT Inspection Neck: Positive for: Normal, Painless ROM, Supple Cardiovascular/Chest: Positive for: Regular Rate, Rhythm. Negative for: Murmur Respiratory: Positive for: Normal Breath Sounds. Negative for: Respiratory Distress Gastrointestinal/Abdominal: Positive for: Soft. Negative for: Tenderness Back: Positive for: Normal Inspection Extremity: Positive for: Normal ROM. Negative for: Deformity Neurologic/Psych: Positive for: Alert, Oriented. Negative for: Motor/Sensory Deficits - ECG O2 Sat by Pulse Oximetry: 98 (RA) Pulse Ox Interpretation: Normal Medical Decision Making Medical Decision Makin Initial impression: cold symptoms Initial plan: * Albuterol 2.5mg INH * Nebulizer treatment * Peak flow pre/post Tx * Influenza A B * Re-eval 0700 Patient feels better. Swab came back (-). Scribe Attestation: Documented by Susanna Gutierrez acting as a scribe for Erica Reyes MD. Scribe Attestation: All medical record entries made by the Scribe were at my direction and personally dictated by me. I have reviewed the chart and agree that the record accurately reflects my personal performance of the history, physical exam, medical decision making, and the department course for this patient. I have also personally directed, reviewed, and agree with the discharge instructions and disposition. Disposition - Clinical Impression Clinical Impression: Common cold - Patient ED Disposition Is Patient to be Admitted: No - Disposition Referrals: [facility] [Outside] [facility] [Outside] Disposition: Routine/Home Disposition Time: 07:00 Condition: IMPROVED Additional Instructions: follow up with your primary doctor in 1-2 days return to the ED with any worsening or concerning symptoms Instructions: Cold Symptoms (ED) Forms: [facility] (Syrian)
[2017-10-09] MEDS: Albuterol 0.083% Inhal Sol (2.5 mg/3 mL) UD INH ONE (06:10)
== END 2017-10-09 07:21 | disposition home or self-care (01) ==
LOC: H.ER 05:26
DX: J00 Acute nasopharyngitis [common cold] (principal); D64.9 Anemia, unspecified; E05.90 Thyrotoxicosis, unspecified without thyrotoxic crisis or storm; F41.9 Anxiety disorder, unspecified; I12.9 Hypertensive chronic kidney disease with stage 1 through stage 4 chronic kidney disease, or unspecified chronic kidney disease; Z88.0 Allergy status to penicillin

== ENCOUNTER 2017-10-18 08:40 | Emergency (ER) | payer OTHER ==
[2017-10-18 08:41] VITALS: BMI 35.9
[2017-10-18 08:43] VITALS: BP 135/77; PULSE 99; RESP 21; TEMP 97.5; O2SAT 99
--- NOTE | 2017-10-18 09:10 | ED PDOC ---
HPI: CCC, URI, Sore Throat Time Seen by Provider: 10/18/17 08:58 Chief Complaint (Nursing): Cough, Cold, Congestion Chief Complaint (Provider): Cough History Per: Patient History/Exam Limitations: no limitations Onset/Duration Of Symptoms: Days (x1) Current Symptoms Are (Timing): Still Present Associated Symptoms: Cough (productive), Sputum (white), Other (SOB and wheezing ). denies: Fever Ear Symptoms: Bilateral: None Additional Complaint(s): Nafisa Drew is a 57 year old female, with a past medical history of asthma , who presents to the emergency department complaining of productive cough with white sputum associated with shortness of breath and wheezing onset since yesterday. Patient denies any fever. No further medical complaints. PMD: None provided. Past Medical History Reviewed: Historical Data, Nursing Documentation, Vital Signs Vital Signs: Last Vital Signs Temp 97.5 F L 10/18/17 08:42 Pulse 99 H 10/18/17 08:42 Resp 21 10/18/17 08:42 BP 135/77 10/18/17 08:42 Pulse Ox 99 10/18/17 09:12 - Medical History PMH: Anemia, Anxiety, Asthma, Back Problems, HTN, Hyperthyroidism ( hyperparathyroidism ), Kidney Stones, Migraine, Chronic Kidney Disease, Seizures (LAST WAS IN AUG PER PT) Denies: Diabetes - Surgical History Surgical History: - Family History Family History: States: Unknown Family Hx - Immunization History Hx Tetanus Toxoid Vaccination: Yes Hx Influenza Vaccination: Yes (05/2017) Hx Pneumococcal Vaccination: Yes (2014) - Home Medications Home Medications: Ambulatory Orders Medication Instructions Recorded Folic Acid 1 mg PO TID 11/19/15 Metoprolol Tartrate [Lopressor] 12.5 mg PO BID 06/24/17 FLUoxetine [Prozac] 10 mg PO DAILY 06/27/17 Levetiracetam [Keppra] 500 mg PO BID #14 tablet 08/05/17 Levetiracetam [Keppra] 250 mg PO BID #60 tab 08/12/17 Albuterol HFA [Ventolin HFA 90 2 puff IH Q4H #1 puff 10/18/17 mcg/actuation (8 g)] Azithromycin [Zithromax] 250 mg PO DAILY #6 tab 01/19/18 predniSONE [predniSONE Tab] 10 mg PO TID #15 tab 10/18/17 - Allergies Allergies/Adverse Reactions: Allergies Allergy/AdvReac Type Severity Reaction Status Date / Time ciprofloxacin [From Cipro] Allergy ITCHING Verified 08/16/17 12:38 ciprofloxacin HCl Allergy ITCHING Verified 08/16/17 12:38 [From Cipro] heparin Allergy RASH Verified 08/16/17 12:38 iodine Allergy SHORTNESS Verified 08/16/17 12:38 OF BREATH peanut Allergy SHORTNESS Verified 08/16/17 12:38 OF BREATH Penicillins Allergy RASH Verified 08/16/17 12:38 shellfish derived Allergy RASH Verified 08/16/17 12:38 baljit nuts Allergy SHORTNESS Uncoded 08/12/17 10:21 OF BREATH nuts Allergy SHORTNESS Uncoded 08/12/17 10:21 OF BREATH peanut butter Allergy SHORTNESS Uncoded 08/12/17 10:21 OF BREATH Review of Systems ROS Statement: Except As Marked, All Systems Reviewed And Found Negative Constitutional: Negative for: Fever Respiratory: Positive for: Cough (productive), Shortness of Breath, Sputum ( white), Wheezing Physical Exam - Reviewed Nursing Documentation Reviewed: Yes Vital Signs Reviewed: Yes - Physical Exam Appears: Positive for: Non-toxic Head Exam: Positive for: ATRAUMATIC, NORMAL INSPECTION, NORMOCEPHALIC Skin: Positive for: Normal Color, Warm, Dry Eye Exam: Positive for: Normal appearance ENT: Negative for: Pharyngeal Erythema, Tonsillar Exudate Neck: Positive for: Painless ROM Cardiovascular/Chest: Positive for: Regular Rate, Rhythm. Negative for: Murmur Respiratory: Positive for: Rhonchi (scattered ). Negative for: Wheezing, Respiratory Distress Extremity: Positive for: Normal ROM. Negative for: Pedal Edema, Deformity, Swelling Neurologic/Psych: Positive for: Alert, Oriented - ECG O2 Sat by Pulse Oximetry: 99 (RA) Pulse Ox Interpretation: Normal Medical Decision Making Medical Decision Making: Initial Plan: --Chest two views (PA/LAT) [RAD] --Influenza A B --reevaluation Scribe Attestation: Documented by Sukhdev Puga, acting as a scribe for Mendoza Osborne MD Provider Scribe Attestation: All medical record entries made by the Scribe were at my direction and personally dictated by me. I have reviewed the chart and agree that the record accurately reflects my personal performance of the history, physical exam, medical decision making, and the department course for this patient. I have also personally directed, reviewed, and agree with the discharge instructions and disposition. Disposition - Clinical Impression Clinical Impression: Bronchitis - Patient ED Disposition Is Patient to be Admitted: No Counseled Patient/Family Regarding: Studies Performed, Diagnosis, Need For Followup, Rx Given - Disposition Referrals: [facility] [Outside] Disposition: Routine/Home Disposition Time: 10:10 Condition: FAIR Prescriptions: Albuterol HFA [Ventolin HFA 90 mcg/actuation (8 g)] 2 puff IH Q4H #1 puff Azithromycin [Zithromax] 250 mg PO DAILY #6 tab predniSONE [predniSONE Tab] 10 mg PO TID #15 tab Instructions: Acute Bronchitis (ED) Forms: [facility] (Amharic)
--- NOTE | 2017-10-18 11:25 | RAD ---
HISTORY: cough COMPARISON: 07/10/2017 TECHNIQUE: Chest PA and lateral FINDINGS: LUNGS: No active pulmonary disease. PLEURA: No significant pleural effusion identified. No pneumothorax apparent. CARDIOVASCULAR: Normal. OSSEOUS STRUCTURES: Thoracic dextroscoliosis. VISUALIZED UPPER ABDOMEN: Normal. OTHER FINDINGS: None. IMPRESSION: No active disease.
== END 2017-10-18 11:11 | disposition home or self-care (01) ==
LOC: H.ER 08:40
DX: J40 Bronchitis, not specified as acute or chronic (principal); E05.90 Thyrotoxicosis, unspecified without thyrotoxic crisis or storm; F41.9 Anxiety disorder, unspecified; J45.909 Unspecified asthma, uncomplicated; I12.9 Hypertensive chronic kidney disease with stage 1 through stage 4 chronic kidney disease, or unspecified chronic kidney disease; Z88.0 Allergy status to penicillin

== ENCOUNTER 2017-11-02 14:20 | Emergency (ER) | payer OTHER ==
[2017-11-02 14:20] VITALS: BMI 35.9
[2017-11-02 14:48] VITALS: O2SAT 100
[2017-11-02] MEDS ORDERED: DiphenhydrAMINE 50 mg/ml Inj IVP STA (15:20)
[2017-11-02] MEDS ORDERED: Albuterol-Ipratrop 3 mg / 0.5 (3 ml) UD INH STA (15:21)
--- NOTE | 2017-11-02 15:22 | ED PDOC ---
HPI: Chest Pain Time Seen by Provider: 11/02/17 14:36 Chief Complaint (Nursing): Chest Pain Additional Complaint(s): Patient states she developed chest pain after eating nuts which she is allergic to - patient also states she had syncopal episode x 2 just prior to arrival to ED; however, appears very anxious and hyperventilating. Pt states she has mild chest tightness, no dizziness at this time. No rash, itching swelling reported Past Medical History Reviewed: Nursing Documentation, Vital Signs Vital Signs: Last Vital Signs Temp 98 F 11/02/17 20:10 Pulse 81 11/02/17 20:10 Resp 18 11/02/17 20:10 BP 122/67 11/02/17 20:10 Pulse Ox 100 11/02/17 20:10 - Medical History PMH: Anemia, Anxiety, Asthma, Back Problems, HTN, Hyperthyroidism ( hyperparathyroidism ), Kidney Stones, Migraine, Chronic Kidney Disease, Seizures (LAST WAS IN AUG PER PT) - Surgical History Surgical History: - Family History Family History: States: Unknown Family Hx - Living Arrangements Living Arrangements: With Family - Social History Current smoker - smoking cessation education provided: No Alcohol: Social Drugs: Denies - Immunization History Hx Tetanus Toxoid Vaccination: Yes Hx Influenza Vaccination: Yes (05/2017) Hx Pneumococcal Vaccination: Yes (2014) - Home Medications Home Medications: Ambulatory Orders Medication Instructions Recorded Folic Acid 1 mg PO TID 11/19/15 Metoprolol Tartrate [Lopressor] 12.5 mg PO BID 06/24/17 FLUoxetine [Prozac] 10 mg PO DAILY 06/27/17 Albuterol HFA [Ventolin HFA 90 2 puff IH Q4H #1 puff 10/18/17 mcg/actuation (8 g)] Meclizine [Meclizine*] 50 mg PO Q6 #30 tab 10/25/17 Albuterol HFA [Ventolin HFA 90 0.09 mg IH Q4 PRN #1 puff 11/15/17 mcg/actuation (8 g)] D-Methorphan/PE/Acetaminophen [Day 296 ml PO QID PRN #1 liquid 11/20/17 Time Cold-Flu Relief Liq] Oseltamivir [Tamiflu] 75 mg PO BID #9 cap 11/20/17 - Allergies Allergies/Adverse Reactions: Allergies Allergy/AdvReac Type Severity Reaction Status Date / Time ciprofloxacin [From Cipro] Allergy ITCHING Verified 11/20/17 05:58 ciprofloxacin HCl Allergy ITCHING Verified 11/20/17 05:58 [From Cipro] heparin Allergy RASH Verified 11/20/17 05:58 iodine Allergy SHORTNESS Verified 11/20/17 05:58 OF BREATH peanut Allergy SHORTNESS Verified 11/20/17 05:58 OF BREATH Penicillins Allergy RASH Verified 11/20/17 05:58 shellfish derived Allergy RASH Verified 11/20/17 05:58 peanut butter Allergy Severe SHORTNESS Uncoded 11/20/17 05:58 OF BREATH baljit nuts Allergy SHORTNESS Uncoded 11/20/17 05:58 OF BREATH nuts Allergy SHORTNESS Uncoded 11/20/17 05:58 OF BREATH Review of Systems ROS Statement: Except As Marked, All Systems Reviewed And Found Negative Cardiovascular: Positive for: Chest Pain (tightness). Negative for: Palpitations Physical Exam - Reviewed Nursing Documentation Reviewed: Yes Vital Signs Reviewed: Yes - Physical Exam Appears: Positive for: Well, Non-toxic, No Acute Distress Head Exam: Positive for: ATRAUMATIC, NORMAL INSPECTION, NORMOCEPHALIC Skin: Positive for: Normal Color, Warm, DRY Eye Exam: Positive for: EOMI, Normal appearance, PERRL ENT: Positive for: Normal ENT Inspection Neck: Positive for: Normal, Painless ROM Cardiovascular/Chest: Positive for: Regular Rate, Rhythm Respiratory: Positive for: CNT, Normal Breath Sounds Gastrointestinal/Abdominal: Positive for: Normal Exam, Bowel Sounds, Soft Back: Positive for: Normal Inspection Extremity: Positive for: Normal ROM Neurologic/Psych: Positive for: Alert, Oriented - Laboratory Results Result Diagrams: 11/02/17 16:00 11/02/17 16:00 - ECG O2 Sat by Pulse Oximetry: 100 Medical Decision Making Medical Decision Making: EKG: NSR 83 bpm, no acute ST cahnges, as read by ED MD Pt placed on monitor tech, vitals remain stable IV access established and treatment initiated with Solumedrol, Benadryl, Pepcid Labs resulted and reviewed with Pt who demonstrated full understanding. Reports feeling greatly improved on re-eval Disposition - Clinical Impression Clinical Impression: Allergic reaction - Patient ED Disposition Is Patient to be Admitted: No - Disposition Disposition: Routine/Home Disposition Time: 16:00 Condition: STABLE Instructions: Food Allergy (ED), General Allergic Reaction (ED) Forms: [facility] (American)
[2017-11-02] MEDS ORDERED: DiphenhydrAMINE 50 mg/ml Inj ONE (16:42)
[2017-11-02 16:43] LABS: BASO % 0.6 % (0.0-2.0); EOS # 0.2 K/uL (0.0-0.7); HEMOGLOBIN 12.1 g/dL (12.0-16.0); LYMPH # 2.5 K/uL (1.0-4.3); LYMPH % 32.6 % (20.0-40.0); MEAN CELL VOLUME 86.3 fl (81.0-99.0); MEAN CORPUSCULAR HEMOGLOBIN 27.8 pg (27.0-31.0); MEAN CORPUSCULAR HGB CONC 32.2 g/dL (33.0-37.0); MONO # 0.8 K/uL (0.0-0.8); MONO % 9.9 % (0.0-10.0); NEUT # 4.2 K/uL (1.8-7.0); NEUT % 54.9 % (50.0-75.0); NRBC % 0.2 % (0.0-0.0); RBC 4.35 Mil/uL (3.80-5.20); RED CELL DISTRIBUTION WIDTH 13.6 % (11.5-14.5); WHITE BLOOD COUNT 7.7 K/uL (4.8-10.8)
[2017-11-02] MEDS ORDERED: Albuterol-Ipratrop 3 mg / 0.5 (3 ml) UD ONE (16:43)
[2017-11-02 16:51] LABS: ALB/GLOB RATIO 0.9 (1.0-2.1); ALBUMIN 3.6 g/dL (3.5-5.0); ALT/SGPT 27 U/L (9-52); AST/SGOT 23 U/L (14-36); BLOOD UREA NITROGEN 10 mg/dl (7-17); CALCIUM 12.3 mg/dL (8.4-10.2); GFR AFRICAN-AMERICAN > 60; GFR NON-AFRICAN AMERICAN > 60
[2017-11-02 18:16] VITALS: RESP 18; TEMP 98
[2017-11-02 20:10] VITALS: BP 122/67; PULSE 81
--- NOTE | 2017-11-03 11:22 | CARD ---
APPROVED REPORT EKG Measurement Heart [id number] <Conclusion> Normal sinus rhythm Voltage criteria for left ventricular hypertrophy Cannot rule out Septal infarct, age undetermined Abnormal ECG
== END 2017-11-02 20:11 | disposition home or self-care (01) ==
LOC: H.ER 14:20
DX: T78.40XA Allergy, unspecified, initial encounter (principal); J45.909 Unspecified asthma, uncomplicated; Z87.442 Personal history of urinary calculi; Z88.0 Allergy status to penicillin; N18.9 Chronic kidney disease, unspecified; I12.9 Hypertensive chronic kidney disease with stage 1 through stage 4 chronic kidney disease, or unspecified chronic kidney disease; E05.90 Thyrotoxicosis, unspecified without thyrotoxic crisis or storm
CPT/HCPCS: 80053; 84484; 85025; 93005; 94640; 96374; 96375; 99283; J1200; J2930

== ENCOUNTER 2017-11-26 05:52 | Emergency (ER) | payer OTHER ==
[2017-11-26 05:52] VITALS: BMI 35.9
[2017-11-26] MEDS ORDERED: Albuterol-Ipratrop 3 mg / 0.5 (3 ml) UD INH STA ×2 (06:26→06:27)
[2017-11-26] MEDS ORDERED: Sodium Chloride 0.9% 1,000 ML IV SCH ×2 (06:30)
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
--- NOTE | 2017-11-26 06:53 | CT ---
EXAM: CT Head Without Intravenous Contrast CLINICAL HISTORY: 57 years old, female; Signs and symptoms; Syncope and collapse; Additional info: Syncope, fall TECHNIQUE: Axial computed tomography images of the head/brain without intravenous contrast. All CT scans at this facility use one or more dose reduction techniques, viz.: automated exposure control; ma/kV adjustment per patient size (including targeted exams where dose is matched to indication; i.e. head); or iterative reconstruction technique. Coronal and sagittal reformatted images were created and reviewed. COMPARISON: CT - HEAD W/O (CODE STROKE) 2017-07-10 11:21 FINDINGS: Brain: Mild atrophy. No intracranial hemorrhage. No mass. No edema. Ventricles: No hydrocephalus. Cavum septum pellucidum and vergae. Bones/joints: No acute fracture. Soft tissues: Unremarkable. Sinuses: Moderate mucosal thickening of ethmoid sinuses. Scattered minimal to mild mucosal thickening of remaining sinuses. Mastoid air cells: No mastoid effusion. Orbits: Unremarkable as visualized. IMPRESSION: 1. No intracranial hemorrhage. 2. Incidental/non-acute findings are described above.
[2017-11-26 07:10] LABS: BASO # 0.1 K/uL (0.0-0.2); BASO % 0.8 % (0.0-2.0); EOS # 0.1 K/uL (0.0-0.7); EOS % 1.3 % (0.0-4.0); HEMOGLOBIN 12.6 g/dL (12.0-16.0); LYMPH # 2.7 K/uL (1.0-4.3); LYMPH % 34.1 % (20.0-40.0); MEAN CELL VOLUME 85.5 fl (81.0-99.0); MEAN CORPUSCULAR HGB CONC 32.7 g/dL (33.0-37.0); MONO # 0.7 K/uL (0.0-0.8); MONO % 9.2 % (0.0-10.0); NEUT # 4.3 K/uL (1.8-7.0); NEUT % 54.6 % (50.0-75.0); NRBC % 0.1 % (0.0-0.0); RBC 4.49 Mil/uL (3.80-5.20); RED CELL DISTRIBUTION WIDTH 13.9 % (11.5-14.5)
[2017-11-26 07:21] LABS: INR 1.1 (0.9-1.2); PROTHROMBIN TIME 12.3 Seconds (9.8-13.1)
[2017-11-26 07:21] LABS: VENOUS BLOOD GAS BASE EXCESS 3.7 mmol/L (0.0-2.0); VENOUS BLOOD GAS PCO2 43 mmHg (40-60); VENOUS BLOOD GAS PO2 33 mm/Hg (30-55); VENOUS BLOOD PH 7.43 (7.32-7.43)
--- NOTE | 2017-11-26 07:34 | ED PDOC ---
- Laboratory Results Result Diagrams: 11/26/17 06:55 11/26/17 06:55 - ECG O2 Sat by Pulse Oximetry: 100 Medical Decision Making Medical Decision Making: Time: 07:00 Patient signed out to me by Dr. Saavedra pending labs and re-evaluation. Time: 06:57 ADDENDUM Addendum created by Lexx Park MD on 11/26/2017 6:57:25 AM EST Brain: Mild atrophy. No intracranial hemorrhage. No mass. Few scattered foci of decreased attenuation within periventricular/subcortical white matter. No edema. IMPRESSION: 1. No intracranial hemorrhage. 2. Nonspecific white matter changes. 3. Incidental/non-acute findings are described above. Initial report created on 11/26/2017 6:53:26 AM EST EXAM: CT Head Without Intravenous Contrast CLINICAL HISTORY: 57 years old, female; Signs and symptoms; Syncope and collapse; Additional info: Syncope, fall TECHNIQUE: Axial computed tomography images of the head/brain without intravenous contrast. All CT scans at this facility use one or more dose reduction techniques, viz.: automated exposure control; ma/kV adjustment per patient size (including targeted exams where dose is matched to indication; i.e. head); or iterative reconstruction technique. Coronal and sagittal reformatted images were created and reviewed. COMPARISON: CT - HEAD W/O (CODE STROKE) 2017-07-10 11:21 FINDINGS: Brain: Mild atrophy. No intracranial hemorrhage. No mass. No edema. Ventricles: No hydrocephalus. Cavum septum pellucidum and vergae. Bones/joints: No acute fracture. Soft tissues: Unremarkable. Sinuses: Moderate mucosal thickening of ethmoid sinuses. Scattered minimal to mild mucosal thickening of remaining sinuses. Mastoid air cells: No mastoid effusion. Orbits: Unremarkable as visualized. IMPRESSION: 1. No intracranial hemorrhage. 2. Incidental/non-acute findings are described above. Addendum Dictated By: Lexx Park MD Addendum Dictated Date Time:11/26/17 Addendum Signed by:Lexx Park MD Addendum signed Date Time: 11/26/17656 Addendum Transcribed By: YARELIS Addendum Transcribed Date Time: 11/26/17 [id number] EXAM: CT Head Without Intravenous Contrast CLINICAL HISTORY: 57 years old, female; Signs and symptoms; Syncope and collapse; Additional info: Syncope, fall TECHNIQUE: Axial computed tomography images of the head/brain without intravenous contrast. All CT scans at this facility use one or more dose reduction techniques, viz.: automated exposure control; ma/kV adjustment per patient size (including targeted exams where dose is matched to indication; i.e. head); or iterative reconstruction technique. Coronal and sagittal reformatted images were created and reviewed. COMPARISON: CT - HEAD W/O (CODE STROKE) 2017-07-10 11:21 FINDINGS: Brain: Mild atrophy. No intracranial hemorrhage. No mass. No edema. Ventricles: No hydrocephalus. Cavum septum pellucidum and vergae. Bones/joints: No acute fracture. Soft tissues: Unremarkable. Sinuses: Moderate mucosal thickening of ethmoid sinuses. Scattered minimal to mild mucosal thickening of remaining sinuses. Mastoid air cells: No mastoid effusion. Orbits: Unremarkable as visualized. IMPRESSION: 1. No intracranial hemorrhage. 2. Incidental/non-acute findings are described above. Time: 09:47 CXR FINDINGS: LUNGS: No active pulmonary disease. PLEURA: No significant pleural effusion identified, no pneumothorax apparent. CARDIOVASCULAR: Normal. OSSEOUS STRUCTURES: Unchanged. VISUALIZED UPPER ABDOMEN: Normal. OTHER FINDINGS: None. IMPRESSION: No active disease. Time: 11:30 Discussed results of imaging with patient. Advised to followup with PMD. Return if symptoms persist or worsen. Scribe Attestation: Documented by Yvan Lechuga, acting as a scribe for Erica Reyes MD. Provider Scribe Attestation: All medical record entries made by the Scribe were at my direction and personally dictated by me. I have reviewed the chart and agree that the record accurately reflects my personal performance of the history, physical exam, medical decision making, and the department course for this patient. I have also personally directed, reviewed, and agree with the discharge instructions and disposition. Disposition Counseled Patient/Family Regarding: Studies Performed, Diagnosis, Need For Followup - Clinical Impression Clinical Impression: Syncope - Disposition Referrals: [facility] [Outside] [facility] [Outside] Disposition: Routine/Home Disposition Time: 11:30 Condition: STABLE Additional Instructions: follow up with your primary doctor in 1-2 days for reevaluation return to the ED with any worsening or concerning symptoms Instructions: Syncope (Fainting) Forms: [employer] (Indonesian)
[2017-11-26 07:40] LABS: ALB/GLOB RATIO 0.9 (1.0-2.1); ALBUMIN 3.6 g/dL (3.5-5.0); ALT/SGPT 34 U/L (9-52); AST/SGOT 17 U/L (14-36); BLOOD UREA NITROGEN 7 mg/dl (7-17); CALCIUM 11.8 mg/dL (8.4-10.2); GFR AFRICAN-AMERICAN > 60; GFR NON-AFRICAN AMERICAN > 60
[2017-11-26 08:21] VITALS: O2SAT 100
--- NOTE | 2017-11-26 09:48 | RAD ---
HISTORY: syncope COMPARISON: Chest radiograph dated 10/18/2017 FINDINGS: LUNGS: No active pulmonary disease. PLEURA: No significant pleural effusion identified, no pneumothorax apparent. CARDIOVASCULAR: Normal. OSSEOUS STRUCTURES: Unchanged. VISUALIZED UPPER ABDOMEN: Normal. OTHER FINDINGS: None. IMPRESSION: No active disease.
[2017-11-26 10:53] VITALS: BP 124/58; PULSE 88; RESP 21; TEMP 97.7
[2017-11-26] MEDS ORDERED: Potassium Chloride 20 mEq ER Tab PO ONE ×2 (11:26→11:39)
--- NOTE | 2017-11-29 18:26 | CARD ---
APPROVED REPORT EKG Measurement Heart [id number] RI [id number] <Conclusion> Sinus rhythm with occasional premature ventricular complexes Minimal voltage criteria for LVH, may be normal variant Possible Anteroseptal infarct, age undetermined Abnormal ECG
== END 2017-11-26 12:17 | disposition home or self-care (01) ==
LOC: H.ER 05:52
DX: R55 Syncope and collapse (principal); I10 Essential (primary) hypertension; E05.90 Thyrotoxicosis, unspecified without thyrotoxic crisis or storm; Z87.442 Personal history of urinary calculi; J45.909 Unspecified asthma, uncomplicated; N18.9 Chronic kidney disease, unspecified; Z88.0 Allergy status to penicillin; I12.9 Hypertensive chronic kidney disease with stage 1 through stage 4 chronic kidney disease, or unspecified chronic kidney disease
CPT/HCPCS: 70450; 71045; 80053; 82803; 84484; 85025; 85610; 85730; 87040; 96374; 99283; J1885

== ENCOUNTER 2017-11-28 21:09 | Emergency (ER) | payer OTHER ==
[2017-11-28 21:09] VITALS: BMI 35.9
[2017-11-28 21:18] VITALS: RESP 16
--- NOTE | 2017-11-28 21:52 | ED PDOC ---
Syncope/Near Syncope/Dizziness Time Seen by Provider: 11/28/17 21:25 Chief Complaint (Nursing): Syncope History Per: Patient History/Exam Limitations: no limitations Additional Complaint(s): 57 year old female with a past medical history of low blood pressure, anemia, and low blood sugar after an episode of syncope prior to arrival. Patient states she was nearby someone who had a string scented oil in which she tried to get away from but instead ended up having a syncopal episode. Reports she hit her had on the ground and witnessed said syncope only lasted seconds. Patient is now experiencing neck pain, headache, and right hip pain. Patient denies following symptoms before and after syncopal episode: lightheadedness, chest pain, shortness of breath, nausea,vomiting, diarrhea, numbness, tingling, and weakness. Of note, patient was seen in [facility] for the same reasons last week. PMD: Dr. Rubio Malik MD Past Medical History Reviewed: Historical Data, Nursing Documentation, Vital Signs Vital Signs: Last Vital Signs Temp 98.1 F 11/28/17 21:12 Pulse 96 H 11/28/17 21:12 Resp 16 11/28/17 21:12 BP 127/88 11/28/17 21:12 Pulse Ox 98 11/28/17 21:12 - Medical History PMH: Anemia, Anxiety, Asthma, Back Problems, HTN, Hyperthyroidism ( hyperparathyroidism ), Kidney Stones, Migraine, Chronic Kidney Disease, Seizures (LAST WAS IN AUG PER PT) - Surgical History Surgical History: - Family History Family History: States: Unknown Family Hx - Immunization History Hx Tetanus Toxoid Vaccination: Yes Hx Influenza Vaccination: Yes (05/2017) Hx Pneumococcal Vaccination: Yes (2014) - Home Medications Home Medications: Ambulatory Orders Medication Instructions Recorded Folic Acid 1 mg PO TID 11/19/15 Metoprolol Tartrate [Lopressor] 12.5 mg PO BID 06/24/17 FLUoxetine [Prozac] 10 mg PO DAILY 06/27/17 Albuterol HFA [Ventolin HFA 90 2 puff IH Q4H #1 puff 10/18/17 mcg/actuation (8 g)] Meclizine [Meclizine*] 50 mg PO Q6 #30 tab 10/25/17 Albuterol HFA [Ventolin HFA 90 0.09 mg IH Q4 PRN #1 puff 11/15/17 mcg/actuation (8 g)] D-Methorphan/PE/Acetaminophen [Day 296 ml PO QID PRN #1 liquid 11/20/17 Time Cold-Flu Relief Liq] Oseltamivir [Tamiflu] 75 mg PO BID #9 cap 11/20/17 - Allergies Allergies/Adverse Reactions: Allergies Allergy/AdvReac Type Severity Reaction Status Date / Time ciprofloxacin [From Cipro] Allergy ITCHING Verified 11/26/17 06:07 ciprofloxacin HCl Allergy ITCHING Verified 11/26/17 06:07 [From Cipro] heparin Allergy RASH Verified 11/26/17 06:07 iodine Allergy SHORTNESS Verified 11/26/17 06:07 OF BREATH peanut Allergy SHORTNESS Verified 11/26/17 06:07 OF BREATH Penicillins Allergy RASH Verified 11/26/17 06:07 shellfish derived Allergy RASH Verified 11/26/17 06:07 peanut butter Allergy Severe SHORTNESS Uncoded 11/26/17 06:07 OF BREATH baljit nuts Allergy SHORTNESS Uncoded 11/26/17 06:07 OF BREATH nuts Allergy SHORTNESS Uncoded 11/26/17 06:07 OF BREATH Review of Systems ROS Statement: Except As Marked, All Systems Reviewed And Found Negative (As per HPI, otherwise negative) Cardiovascular: Negative for: Chest Pain, Light Headedness Respiratory: Negative for: Shortness of Breath Gastrointestinal: Negative for: Nausea, Vomiting, Diarrhea Musculoskeletal: Positive for: Neck Pain, Other (Right hip pain) Neurological: Positive for: Headache, Other (Syncope ). Negative for: Weakness , Numbness (tingling), Dizziness Physical Exam - Reviewed Nursing Documentation Reviewed: Yes Vital Signs Reviewed: Yes - Physical Exam Appears: Positive for: Non-toxic, No Acute Distress Head Exam: Positive for: ATRAUMATIC, NORMAL INSPECTION, NORMOCEPHALIC Skin: Positive for: Normal Color, Warm, Dry Eye Exam: Positive for: Normal appearance, EOMI, PERRL ENT: Positive for: Normal ENT Inspection Neck: Positive for: Pain On Movement Of Neck (Tenderness to the posterior neck region ) Cardiovascular/Chest: Positive for: Regular Rate, Rhythm. Negative for: Murmur Respiratory: Positive for: Normal Breath Sounds. Negative for: Accessory Muscle Use, Respiratory Distress Gastrointestinal/Abdominal: Positive for: Normal Exam, Soft. Negative for: Tenderness Back: Positive for: Normal Inspection. Negative for: L CVA Tenderness, R CVA Tenderness Extremity: Positive for: Normal ROM (of all extremities bilaterally), Tenderness (Mild tenderness to the right hip otherwise full ROM ). Negative for : Pedal Edema, Swelling Neurologic/Psych: Positive for: Alert, qualification engineer II-XII, Oriented (x3). Negative for : Motor/Sensory Deficits - ECG ECG: Positive for: Interpreted By Me, Viewed By Me ECG Rhythm: Positive for: Normal QRS, Normal ST Segment, Sinus Rhythm O2 Sat by Pulse Oximetry: 98 (RA) Pulse Ox Interpretation: Normal - Radiology X-Ray: Interpreted by Me, Viewed By Me X-Ray Interpretation: No Acute Disease - CT Scan/US ct Other Rad Studies (CT/US): Read By Radiologist Other Rad Interpretation: ct no acute - Progress ED Course And Treament: 2355: Dr. Jordan to fu on labs and dispo. Medical Decision Making Medical Decision Making: Time: 2149 Initial impression: Syncope Initial plan: --EKG --CMP --Troponin I --CBC w/ diff --Cervical Spine CT --Head CT --Right Hip x-ray --Reevaluation Scribe Attestation: Documented by Cora Lozano, acting as a scribe for Jayden Mccauley MD. Provider Scribe Attestation: All medical record entries made by the Scribe were at my direction and personally dictated by me. I have reviewed the chart and agree that the record accurately reflects my personal performance of the history, physical exam, medical decision making, and the department course for this patient. I have also personally directed, reviewed, and agree with the discharge instructions and disposition. Disposition - Clinical Impression Clinical Impression: Syncope - Patient ED Disposition Is Patient to be Admitted: No - Disposition Disposition: Transfer of Care Disposition Time: 23:55 Condition: STABLE Patient Signed Over To: Dillon Jordan
--- NOTE | 2017-11-28 23:30 | CT ---
EXAM: CT Head Without Intravenous Contrast CLINICAL HISTORY: 57 years old, female; Signs and symptoms; Other: Poss syncope; Additional info: Headache. Sent phy. Doc. TECHNIQUE: Axial computed tomography images of the head/brain without intravenous contrast. All CT scans at this facility use one or more dose reduction techniques, viz.: automated exposure control; ma/kV adjustment per patient size (including targeted exams where dose is matched to indication; i.e. head); or iterative reconstruction technique. Coronal and sagittal reformatted images were created and reviewed. COMPARISON: CT - HEAD W/O CONTRAST 2017-11-26 06:38 FINDINGS: Brain: Mild atrophy. No intracranial hemorrhage. No mass. Few scattered foci of decreased attenuation within periventricular/subcortical white matter. No definite edema. Ventricles: No hydrocephalus. Cavum septum pellucidum and vergae. Bones/joints: No acute fracture. Soft tissues: Unremarkable. Sinuses: Moderate mucosal thickening of ethmoid sinuses. Scattered minimal to mild mucosal thickening of remaining sinuses. Mastoid air cells: No mastoid effusion. Orbits: Unremarkable as visualized. IMPRESSION: 1. Nonspecific white matter changes. Acute infarction may be CT occult within first 24 hours. If a focal deficit persists, consider followup CT or MRI for further evaluation. 2. Incidental/non-acute findings are described above.
--- NOTE | 2017-11-28 23:35 | CT ---
EXAM: CT Cervical Spine Without Intravenous Contrast CLINICAL HISTORY: 57 years old, female; Pain; Neck pain; Additional info: Neck pain. Sent phy. Doc. TECHNIQUE: Axial computed tomography images of the cervical spine without intravenous contrast. All CT scans at this facility use one or more dose reduction techniques, viz.: automated exposure control; ma/kV adjustment per patient size (including targeted exams where dose is matched to indication; i.e. head); or iterative reconstruction technique. Coronal and sagittal reformatted images were created and reviewed. COMPARISON: No relevant prior studies available. FINDINGS: Vertebrae: No acute fracture. Small lucent lesion within C7 vertebral body, nonspecific. Straightening of cervical spine. Discs/spinal canal/neural foramina: Mild degenerative disc disease at C4-C5, C5-C6, C6-C7 levels. No significant central canal stenosis. Neuroforaminal narrowing at C3-C4, C4-C5, C5-C6 levels. Soft tissues: Unremarkable. Sinuses: Scattered [id number] mucosal thickening of visualized sinuses. Lung apices: Unremarkable as visualized. IMPRESSION: 1. No fracture. 2. If neck pain persists, consider MRI for further evaluation. 3. Incidental/non-acute findings are described above.
[2017-11-28 23:59] LABS: BASO # 0.1 K/uL (0.0-0.2); BASO % 0.9 % (0.0-2.0); EOS # 0.1 K/uL (0.0-0.7); EOS % 1.6 % (0.0-4.0); HEMOGLOBIN 12.5 g/dL (12.0-16.0); LYMPH # 2.8 K/uL (1.0-4.3); LYMPH % 31.6 % (20.0-40.0); MEAN CELL VOLUME 84.8 fl (81.0-99.0); MEAN CORPUSCULAR HEMOGLOBIN 28.4 pg (27.0-31.0); MEAN CORPUSCULAR HGB CONC 33.5 g/dL (33.0-37.0); MEAN PLATELET VOLUME 8.7 fl (7.2-11.7); MONO # 0.9 K/uL (0.0-0.8); MONO % 9.8 % (0.0-10.0); NEUT # 4.9 K/uL (1.8-7.0); NEUT % 56.1 % (50.0-75.0); NRBC % 0.1 % (0.0-0.0); RBC 4.41 Mil/uL (3.80-5.20); RED CELL DISTRIBUTION WIDTH 14.2 % (11.5-14.5); WHITE BLOOD COUNT 8.8 K/uL (4.8-10.8)
[2017-11-29 00:11] LABS: ALB/GLOB RATIO 0.9 (1.0-2.1); ALBUMIN 3.6 g/dL (3.5-5.0); ALT/SGPT 30 U/L (9-52); AST/SGOT 20 U/L (14-36); BLOOD UREA NITROGEN 8 mg/dl (7-17); CALCIUM 12.1 mg/dL (8.4-10.2); GFR AFRICAN-AMERICAN > 60; GFR NON-AFRICAN AMERICAN > 60
--- NOTE | 2017-11-29 00:20 | ED PDOC ---
- Laboratory Results Result Diagrams: 11/28/17 23:55 11/28/17 23:55 - ECG O2 Sat by Pulse Oximetry: 98 (RA) Medical Decision Making Medical Decision Makin Patient signed out from Dr. Mccauley to me pending troponin level and final disposition. [id number] Labs reviewed: no clinically significant abnormalities. Dx: syncope Patient is stable for discharge home and will follow up with PCP in 1-2 days. Scribe Attestation: Documented by Susanna Gutierrez acting as a scribe for Dillon Jordan MD. Scribe Attestation: All medical record entries made by the Scribe were at my direction and personally dictated by me. I have reviewed the chart and agree that the record accurately reflects my personal performance of the history, physical exam, medical decision making, and the department course for this patient. I have also personally directed, reviewed, and agree with the discharge instructions and disposition. Disposition - Clinical Impression Clinical Impression: Syncope - Disposition Referrals: formerly [facility] [Outside] Disposition: Routine/Home Disposition Time: 01:43 Condition: STABLE Instructions: Syncope (Fainting) Forms: [employer] (Sri Lankan)
[2017-11-29 02:40] VITALS: BP 150/98; PULSE 95; TEMP 97.4; O2SAT 97
--- NOTE | 2017-11-29 09:03 | RAD ---
PROCEDURE: Right Hip Radiographs. HISTORY: pain COMPARISON: None. FINDINGS: BONES: No acute fracture. JOINTS: Normal. SOFT TISSUES: Normal. OTHER FINDINGS: None. IMPRESSION: No demonstrated fracture or dislocation.
--- NOTE | 2017-11-29 18:05 | CARD ---
APPROVED REPORT EKG Measurement Heart [id number] TX [id number] <Conclusion> Normal sinus rhythm Cannot rule out Anteroseptal infarct, age undetermined Abnormal ECG
== END 2017-11-29 03:18 | disposition home or self-care (01) ==
LOC: H.ER 21:09
DX: R55 Syncope and collapse (principal); E05.90 Thyrotoxicosis, unspecified without thyrotoxic crisis or storm; F41.9 Anxiety disorder, unspecified; I12.9 Hypertensive chronic kidney disease with stage 1 through stage 4 chronic kidney disease, or unspecified chronic kidney disease; J45.909 Unspecified asthma, uncomplicated; Z87.442 Personal history of urinary calculi; Z88.0 Allergy status to penicillin